=== PATIENT | female | born 1960 | race Caucasian/White ===

== ENCOUNTER 2016-07-19 11:44 | Inpatient (IN) ==
[2016-07-19 12:37] LABS: BUN/Creatinine Ratio 12 (6-26); Blood Urea Nitrogen 8 mg/dL (7-20); C-Reactive Protein 49 mg/L (Less than 5); Calcium 7.9 mg/dL (8.6-10.8); Carbon Dioxide 25 mEq/L (19-29); Chloride 100 mEq/L (98-109); Glucose 196 mg/dL (70-99); Osmolality,Calculated 280 (280-300); Potassium 3.4 mEq/L (3.5-4.5); Sodium 133 mEq/L (136-145); eGFR For African Americans > 60 (> 60); eGFR For Non-African Americans > 60 (> 60)
[2016-07-19 12:56] LABS: Basophils % 0.1 %; Eosinophils % 0.1 %; Hematocrit 30.2 % (35.3-44.9); Hemoglobin 10.3 g/dL (11.5-15.4); Immature Granulocytes % 1.5 % (0-4); Lymphocytes # 0.7 K/mcL (0.6-4.6); Lymphocytes % 4.6 %; Mean Corpuscular HGB Conc 34.1 g/dL (31.6-35.5); Mean Corpuscular Hemoglobin 33.7 pg (28.0-33.3); Mean Corpuscular Volume 98.7 fL (83.0-100.0); Mean Platelet Volume 11.4 fL (9.4-12.4); Monocytes % 6.7 %; Neutrophils # 13.3 K/mcL (1.6-8.9); Platelet Count 116 K/mcL (140-400); Red Blood Count 3.06 M/mcL (3.82-4.97); Red Cell Distribution Width 14.9 % (11.5-14.5)
[2016-07-19 13:04] LABS: Bilirubin,Urine Negative (Negative); Blood,Urine Negative (Negative); Clarity,Urine Cloudy (Clear); Color,Urine Yellow (Yellow); Glucose,Urine (UA) Normal (Normal); Ketones,Urine Negative (Negative); Leukocyte Esterase,Urine Small (Negative); Nitrite,Urine Positive (Negative); Protein,Urine Negative (Neg-Trace); Specific Gravity,Urine 1.018 (1.010-1.025); Urobilinogen,Urine Normal (Normal)
[2016-07-19 13:06] LABS: Bacteria,Urine Many per hpf (None-Few); Hyaline Casts,Urine None Seen per lpf (None-Few); RBC,Urine 0-3 per hpf (0-3); Squamous Epithelial Cell,Urine Many per lpf (None-Few)
[2016-07-19 13:12] LABS: Creatine Kinase 104 Units/L (29-168)
--- NOTE | 2016-07-19 13:52 | Emergency Department Note ---
Disposition Clinical Impression: Urinary tract infection Qualifiers: Urinary tract infection type: site unspecified Hematuria presence: without hematuria Qualified Code(s): N39.0 - Urinary tract infection, site not specified Disposition: Admitted As Inpatient Condition: Good Time of Disposition: 13:54 General Adult HPI - General Chief complaint: ED Shortness of Breath/Dyspnea Stated complaint: JOHANN, pain all over sent by pcp Source: patient, family Limitations: no limitations Nursing Notes Reviewed: Yes Vital Signs Reviewed: Yes - History of Present Illness HPI Narrative: 56-year-old female with history of relapsing polychondritis presents with worsening joint pain over the last week despite starting prednisone 60 mg daily and outside emergency department 3 days ago. She states that the pain is in her shoulders and hips as well as knees. She states that it is similar to, but more severe than prior episodes. She admits to intermittent fevers with this and was febrile to 102 at the primary care office this morning. She notes one episode of emesis when the pain was severe. Otherwise, she denies any nausea, abdominal pain, change in urination or bowel movements. She denies any cough or cold symptoms. She denies any rashes or edema. She denies any mucous membrane lesions. Pain Scale: 0 - Related Data Home Medications Medication Instructions Recorded Confirmed Albuterol Sulfate [Proair Hfa] 2 puff IH Q4HR PRN 07/16/16 07/19/16 Clopidogrel [Plavix] 75 mg PO DAILY 07/16/16 07/19/16 Folic Acid 1 mg PO DAILY 07/16/16 07/19/16 Metformin HCl [Fortamet] 500 mg PO BID 07/16/16 07/19/16 Simvastatin [Zocor] 20 mg PO HS 07/16/16 07/19/16 Furosemide [Lasix] 20 mg PO DAILY 07/19/16 07/19/16 Gabapentin [Neurontin] 600 mg PO TID 07/19/16 07/19/16 Lisinopril [Zestril] 5 mg PO DAILY 07/19/16 07/19/16 Previous Rx's Medication Instructions Recorded Meloxicam 7.5 mg PO DAILY #10 tablet 07/10/16 Tramadol HCl [Ultram] 50 mg PO QID PRN #10 tab 07/10/16 Allergies Allergy/AdvReac Type Severity Reaction Status Date / Time aspirin [ASA] AdvReac Vomiting Verified 07/19/16 14:00 All systems ED: reviewed and negative except as stated. Past Medical History - Past Medical History Attestation: Yes The following information was validated with the patient. Source: patient Medical history: Reports: diabetes, fibromyalgia, other Surgical history: Reports: , herniorrhaphy Psychiatric history: Reports: no psych history BOND MANAGER history: Reports: no BOND MANAGER history - Social History Smoking Status: Former smoker Smokeless Tobacco Status: No Alcohol use: Reports: none Drug use: Reports: none Physical Exam - Head Head exam: atraumatic, normocephalic, normal inspection - Eye Eye exam: Present: normal appearance, PERRL, EOMI - ENT ENT exam: normal exam, normal oropharynx, mucous membranes moist - Neck Neck exam: Present: normal inspection, full ROM, trachea midline - Chest Chest inspection: Present: normal inspection, symmetric chest wall rise - Respiratory Respiratory exam: Clear to auscultation bilaterally without wheezes rales or rhonchi Cardiovascular Cardiovascular exam: Present: regular rate, normal rhythm, normal heart sounds - Abdominal Exam Abdominal exam: Present: soft, Non-Tender. Absent: tenderness, distention, guarding, rebound, rigidity - Extremities Exam Has diffuse tenderness to the hips and shoulders bilaterally. Normal distal pulses. No edema. - Back Exam Back exam: Present: normal inspection, full ROM. Absent: tenderness, CVA tenderness (R), CVA tenderness (L) - Neurological Exam Neurological exam: Present: alert, oriented X3, CN II-XII intact - Psychiatric Psychiatric exam: Present: normal affect, normal mood - Skin Skin exam: Present: warm, dry, intact, normal color - General Limitations: no limitations General appearance: alert, in no apparent distress Course - Reevaluation(s) Reevaluation #1: Evaluation here shows moderate elevation of CRP to 50 along with urinary tract infection. Patient will be treated for the urinary tract infection. Dr. Aviles with rheumatology is aware of the patient and will be available for consult as needed. We will admit for urinary tract infection to the hospitalist. Time: 13:53 Reevaluation #2: Accepted by Dr. Torres. Time: 14:07 Vital Signs Temperature 99.0 F 07/19/16 11:49 Pulse Rate 99 07/19/16 11:49 Respiratory Rate 18 07/19/16 11:49 Blood Pressure 137/75 07/19/16 11:49 O2 Sat by Pulse Oximetry 95 07/19/16 11:49 Temperature 99.0 F 07/19/16 12:29 Pulse Rate 91 07/19/16 13:09 Respiratory Rate 16 07/19/16 15:24 Blood Pressure 125/65 07/19/16 15:24 O2 Sat by Pulse Oximetry 97 07/19/16 13:09 Oxygen Delivery Oxygen Delivery Room Air Medical Decision Making - Lab Data Result diagrams: 07/19/16 12:10 07/19/16 12:10 Lab Results 07/19/16 07/19/16 07/19/16 Range/Units 12:10 12:10 12:10 WBC (4.3-11.1) K/mcL RBC (3.82-4.97) M/mcL Hgb (11.5-15.4) g/dL Hct (35.3-44.9) % MCV (83.0-100.0) fL MCH (28.0-33.3) pg MCHC (31.6-35.5) g/dL RDW (11.5-14.5) % Plt Count (140-400) K/mcL MPV (9.4-12.4) fL Immature Gran % (0-4) % Seg Neutrophils % % Lymphocytes % % Monocytes % % Eosinophils % % Basophils % % Neutrophils # (1.6-8.9) K/mcL Lymphocytes # (0.6-4.6) K/mcL Monocytes # (0.0-1.3) K/mcL Eosinophils # (0.0-0.6) K/mcL Basophils # (0.0-0.2) K/mcL ESR 64 H (0-15) mm/hr Sodium 133 L (136-145) mEq/L Potassium 3.4 L (3.5-4.5) mEq/L Chloride 100 (98-109) mEq/L Carbon Dioxide 25 (19-29) mEq/L BUN 8 (7-20) mg/dL Creatinine 0.69 (0.57-1.11) mg/dL Est GFR ( Amer) > 60 (> 60) Est GFR (Non-Af Amer) > 60 (> 60) BUN/Creatinine Ratio 12 (6-26) Glucose 196 H (70-99) mg/dL Calculated Osmolality 280 (280-300) Calcium 7.9 L (8.6-10.8) mg/dL Creatine Kinase 104 (29-168) Units/L Troponin I 0.02 (0-0.03) ng/mL C-Reactive Protein 49 H (Less than 5) mg/L Urine Color (Yellow) Urine Clarity (Clear) Urine pH (5.0-8.0) pH Units Ur Specific [place] (1.010-1.025) Urine Protein (Neg-Trace) mg/dL Urine Glucose (UA) (Normal) mg/dL Urine Ketones (Negative) mg/dL Urine Blood (Negative) Urine Nitrite (Negative) Urine Bilirubin (Negative) Urine Urobilinogen (Normal) mg/dL Ur Leukocyte Esterase (Negative) Urine Microscopic RBC (0-3) per hpf Urine Microscopic WBC (0-3) per hpf Ur Squamous Epith Cells (None-Few) per lpf Urine Bacteria (None-Few) per hpf Hyaline Casts (None-Few) per lpf Ur Culture Indicated? (NO) 07/19/16 07/19/16 Range/Units 12:10 12:55 WBC 15.3 H (4.3-11.1) K/mcL RBC 3.06 L (3.82-4.97) M/mcL Hgb 10.3 L (11.5-15.4) g/dL Hct 30.2 L (35.3-44.9) % MCV 98.7 (83.0-100.0) fL MCH 33.7 H (28.0-33.3) pg MCHC 34.1 (31.6-35.5) g/dL RDW 14.9 H (11.5-14.5) % Plt Count 116 L (140-400) K/mcL MPV 11.4 (9.4-12.4) fL Immature Gran % 1.5 (0-4) % Seg Neutrophils % 87.0 % Lymphocytes % 4.6 % Monocytes % 6.7 % Eosinophils % 0.1 % Basophils % 0.1 % Neutrophils # 13.3 H (1.6-8.9) K/mcL Lymphocytes # 0.7 (0.6-4.6) K/mcL Monocytes # 1.0 (0.0-1.3) K/mcL Eosinophils # 0.0 (0.0-0.6) K/mcL Basophils # 0.0 (0.0-0.2) K/mcL ESR (0-15) mm/hr Sodium (136-145) mEq/L Potassium (3.5-4.5) mEq/L Chloride (98-109) mEq/L Carbon Dioxide (19-29) mEq/L BUN (7-20) mg/dL Creatinine (0.57-1.11) mg/dL Est GFR ( Amer) (> 60) Est GFR (Non-Af Amer) (> 60) BUN/Creatinine Ratio (6-26) Glucose (70-99) mg/dL Calculated Osmolality (280-300) Calcium (8.6-10.8) mg/dL Creatine Kinase (29-168) Units/L Troponin I (0-0.03) ng/mL C-Reactive Protein (Less than 5) mg/L Urine Color Yellow (Yellow) Urine Clarity Cloudy A (Clear) Urine pH 7.0 (5.0-8.0) pH Units Ur Specific [place] 1.018 (1.010-1.025) Urine Protein Negative (Neg-Trace) mg/dL Urine Glucose (UA) Normal (Normal) mg/dL Urine Ketones Negative (Negative) mg/dL Urine Blood Negative (Negative) Urine Nitrite Positive A (Negative) Urine Bilirubin Negative (Negative) Urine Urobilinogen Normal (Normal) mg/dL Ur Leukocyte Esterase Small H (Negative) Urine Microscopic RBC 0-3 (0-3) per hpf Urine Microscopic WBC 5-15 H (0-3) per hpf Ur Squamous Epith Cells Many H (None-Few) per lpf Urine Bacteria Many H (None-Few) per hpf Hyaline Casts None Seen (None-Few) per lpf Ur Culture Indicated? YES A (NO) - EKG Data EKG #1 EKG attestation: Yes I reviewed and interpreted this EKG. EKG results narrative: Normal sinus rhythm and 97 with normal axis and intervals. No ST elevation or depression. No T-wave inversions or flattening. No old EKG available. Attestation Statement - Attestation Attestation: I examined this patient and my medical decision-making was reviewed with the Resident Physician. I agree with the documented findings, disposition and treatment plan as described except to the extent set forth below. Well-appearing female with recurrant polychondritis and a UTI, sx refractory to O/P steroids. SIRS negative. Admitted to hospitalist with inpatient rheumatology consult per rheum request.
[2016-07-19] MEDS ORDERED: Naloxone 0.4 MG/ML INJ IVP PRN (15:58)
[2016-07-19] MEDS ORDERED: Mag Hydrox/Al Hydrox/Simeth 30 ML UDC PO PRN (15:58)
[2016-07-19] MEDS ORDERED: MOM Conc 10 ML UD.LIQ PO PRN (15:58)
[2016-07-19] MEDS ORDERED: Ondansetron 4 MG/2 ML VIAL IVP PRN (15:58)
[2016-07-19] MEDS ORDERED: Acetaminophen 325 MG TABLET PO PRN (15:58)
[2016-07-19] MEDS ORDERED: traMADol 50 MG TABLET PO PRN (16:02)
[2016-07-19] MEDS ORDERED: *HR* Dextrose 50 % in Water (Syg) 50 ML SYRINGE IVP PRN (16:03)
[2016-07-19] MEDS ORDERED: Dextrose Gel 15 GM PO PRN ×2 (16:03)
[2016-07-19] MEDS ORDERED: D5% in Water 1,000 ML IVC PRN (16:03)
--- NOTE | 2016-07-19 16:18 | Internal Med History&Physical ---
<Renetta Qureshi - Last Filed: 07/19/16 16:07> Date of Encounter: 07/19/16 Time of Encounter: 15:45 Assessment and Plan (1) Relapsing polychondritis Current visit: Yes Status: Chronic Per patient, history for 17 years. Patient normally takes meloxicam and Ultram for pain. She intermittently takes steroids. She has been on a prednisone taper for a few days and states that he is not taking any relief. Pain is in her right shoulder and left hip. She has been seen in the emergency department 2 times in the last 2 weeks. She has been seeing a nurse practitioner in [facility] who has been trying to control her pain. She has an appointment with Dr. Aviles in October. I am putting in a consult for him to see her inpatient to attempt to treat her pain prior to October. Patient reports that currently the pain is 7 out of 10 and is causing her to vomit and have decreased appetite. She says that ice packs help her shoulder and heat helps her hip. She denies injury to either area. Right shoulder is not warm. She does hold her arm to avoid moving it. Prednisone 20 mg by mouth twice a day Stop meloxicam due to anemia [place] when necessary pain Rheumatology consult Ice to shoulder, heat to hip Prednisone slow taper on discharge. (2) Urinary tract infection Current visit: Yes Status: Acute Patient reports dysuria since yesterday. 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 She denies any back or abdominal pain. There is no CVA tenderness. She only reports increased frequency and urgency after being hydrated in the emergency department. She received 1 dose of Rocephin IV in the emergency department and will be continued every 24 hours. Urine culture is pending. Urine was negative for blood, positive for bacteria and leukocyte esterase. IV fluids 0.9 normal saline at 50 per hour Rocephin 1 g IV every 24 hours Zofran as needed for nausea Tylenol for pain or fever Urine culture pending Qualifiers: Urinary tract infection type: acute cystitis Hematuria presence: without hematuria Qualified Code(s): N30.00 - Acute cystitis without hematuria (3) Diabetes Current visit: Yes Status: Acute Stop metformin. Sliding scale insulin Accu-Cheks before meals and at bedtime A1c in the morning Diabetic diet Qualifiers: Diabetes mellitus type: type 2 Diabetes mellitus complication status: without complication Diabetes mellitus fpc insulin use: without tank terminal gauger use Qualified Code(s): E11.9 - Type 2 diabetes mellitus without complications (4) Anemia Current visit: Yes Status: Acute Hemoglobin is 10.3. Patient denies tarry stool, blood in her stool. She says that she has had bright red urine, urine in the emergency department negative for blood. Stool for occult blood Her labs in the morning Indications for hemoglobin less than 8 and symptomatic Qualifiers: Anemia type: unspecified type Qualified Code(s): D64.9 - Anemia, unspecified (5) DVT prophylaxis Current visit: Yes Status: Acute Pharmaceutical prophylaxis held due to anemia. Patient independent. JEYSON pathak Internal Medicine - H&P: HPI Admitted From: Home Plans for Post Hospital Care: Home History of present illness: Ms. Marlow is a 56 year old female with history of diabetes, hypertension, unknown irregular heart rate and rhythm polychondritis. Patient states that she has been seen in the emergency department 2 times in the last 2 weeks for worsening pain in her right shoulder and left hip. She says that she is normally taking on steroids for this problem, however this time is not helping. She does have an appointment to see rheumatology in October with Dr. Aviles. She states this is the earliest that she could get in. She does take meloxicam and Ultram at home for pain. She rates the pain a 7 out of 10 and says that she is not getting better this time. She is not resting, and has decreased appetite. Patient also reports onset of dysuria yesterday. She says that she has had bright red urine for 2 months. She said that she chalked it up to her hyperglycemia. She says that she was told by her early head start teacher that her heart was bleeding and it was making her have red urine. She denies any flank pain, abdominal pain, and only reports increased frequency and urgency since being in the emergency department and being hydrated. Patient reports questionable irregular heart rate that has not been diagnosed and she is a patient of Dr. Mccarthy. Patient is admitted to [facility] for UTI and pain control. Past Med Surg Social Fam HX - Past Medical History Medical history: diabetes, fibromyalgia, other Psychiatric history: no psych history - Past Surgical History Surgical History: , herniorrhaphy - Social History Smoking Status: Former smoker Smokeless Tobacco Status: No Alcohol use: none Drug use: none Internal Medicine - H&P: Meds Meloxicam 7.5 mg PO DAILY #10 tablet 07/10/16 [Rx] Tramadol HCl [Ultram] 50 mg PO QID PRN #10 tab 07/10/16 [Rx] Albuterol Sulfate [Proair Hfa] 2 puff IH Q4HR PRN 07/16/16 [History] Clopidogrel [Plavix] 75 mg PO DAILY 07/16/16 [History] Folic Acid 1 mg PO DAILY 07/16/16 [History] Metformin HCl [Fortamet] 500 mg PO BID 07/16/16 [History] Simvastatin [Zocor] 20 mg PO HS 07/16/16 [History] Furosemide [Lasix] 20 mg PO DAILY 07/19/16 [History] Gabapentin [Neurontin] 600 mg PO TID 07/19/16 [History] Lisinopril [Zestril] 5 mg PO DAILY 07/19/16 [History] Allergies aspirin [ASA] Adverse Reaction (Verified 07/19/16 14:00) Vomiting All Systems PM: A 10-system review of systems was performed and is negative for pertinent findings except as documented above in the HPI. - Constitutional Constitutional: no chills, no fever(s), no weakness - EENT Eyes: no blurry vision, no loss of vision - Cardiovascular Cardiovascular ROS IM: no chest pain, no dyspnea, no edema, no lightheadedness, no palpitations - Respiratory Respiratory: no cough, no dyspnea, no pain on inspiration, no chest congestion - Gastrointestinal Gastrointestinal: no abdominal pain, no cramping, no diarrhea, no nausea, no vomiting - Genitourinary Genitourinary: dysuria, urinary frequency, urinary urgency, no urinary hesitancy - Musculoskeletal Musculoskeletal ROS IM: joint swelling, limited range of motion, stiffness, no back pain - Integumentary Integumentary IM: no rash - Neurological Neurological ROS: no dizziness, no frequent falls, no headache(s), no numbness, no tingling, no weakness - Constitutional Vitals: Temp Pulse Resp BP Pulse Ox 99.0 F 91 16 125/65 97 07/19/16 12:29 07/19/16 13:09 07/19/16 15:24 07/19/16 15:24 07/19/16 13:09 General appearance: Present: A&O X 3, pleasant, answers questions appropriately - Head Head exam: Present: normal inspection - Eye Eye exam: Present: normal appearance, conjuntiva pink - ENT ENT exam: Present: mucous membranes moist, normal exam, normal external ear exam - Neck Neck exam general surgery: Present: normal inspection. Absent: lymphadenopathy , tenderness - Respiratory Respiratory exam: Present: decreased breath sounds, CTAB. Absent: rales, rhonchi, wheezes - Cardiovascular Cardiovascular exam: Present: RRR, +S1, +S2. Absent: diastolic murmur, systolic murmur - GI/Abdominal GI/Abdominal exam: Present: normal bowel sounds, soft. Absent: hepatomegaly, rebound, tenderness - Extremities Exam Extremities exam: Present: joint swelling, normal capillary refill, warm. Absent: full ROM, pedal edema, tenderness - Neurological Exam Neurological exam: Present: alert, oriented X3, no focal deficits, strengths equal and symetr throughout. Absent: facial droop, speech deficit Internal Med - H&P Results - Labs CBC & Chem 7: 07/19/16 12:10 07/19/16 12:10 <Marco Torres - Last Filed: 07/19/16 18:08> Date of Encounter: 07/19/16 Time of Encounter: 16:45 Internal Medicine - H&P: HPI History of present illness: Ms. Marlow is a 56 year old female All Systems PM: A 10-system review of systems was performed and is negative for pertinent findings except as documented above in the HPI. - Constitutional Vitals: Temp Pulse Resp BP Pulse Ox 98.1 F 87 14 127/64 95 07/19/16 15:45 07/19/16 15:45 07/19/16 15:45 07/19/16 15:45 07/19/16 15:45 Internal Med - H&P Results - Labs CBC & Chem 7: 07/19/16 12:10 07/19/16 12:10 - Attending Attestation I examined this patient and my medical decision-making was reviewed with the nurse practitioner. I agree with the documented history of present illness, review of systems, past medical, surgical social and family histories and examination findings, disposition and treatment plan as described above except to any changes set forth below. 56-year-old female patient with history of relapsing polychondritis presented to the ER with complaints of right-sided shoulder pain and generalized weakness. She had recently been started on treatment for right-sided shoulder pain and left hip pain with prednisone taper every 3 days. She also complains of dysuria. In the ER, she was found to have an acute urinary tract infection. Her CRP is elevated. On examination, she has tenderness in her muscles around her shoulder joint. Heart sounds and lungs sounds are within normal limits. No focal weakness or numbness. Acute urinary tract infection: We will treat with IV antibiotics. Follow urine culture results. Gentle hydration. Relapsing polychondritis: Continue prednisone and taper slowly. Consult rheumatology for further recommendations. Diabetes mellitus type 2: Monitor blood sugars. Sliding scale insulin. Diabetic diet. Anemia: Monitor blood counts.
--- NOTE | 2016-07-19 16:26 | Electrocardiograph Report ---
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
[2016-07-19] MEDS: 0.9 % Sodium Chloride 1,000 ML IVC SCH (16:49)
[2016-07-19 16:56] LABS: Hemoglobin A1C 5.2 %
[2016-07-19] MEDS ORDERED: predniSONE 20 MG TABLET PO SCH (17:00)
[2016-07-19] MEDS: *HR* HYDROcodone/Acet 5/325 mg TABLET PO PRN (17:04)
[2016-07-19] MEDS: Insulin LISPRO 300 UNITS/3 ML VIAL SQ SCH ×2 (17:05→20:39)
[2016-07-19] MEDS: Gabapentin 300 MG CAPSULE PO SCH (20:39)
[2016-07-20] MEDS: *HR* HYDROcodone/Acet 5/325 mg TABLET PO PRN ×3 (00:28→20:46)
[2016-07-20 05:17] LABS: Basophils % 0.1 %; Hemoglobin 9.6 g/dL (11.5-15.4); Mean Platelet Volume 11.1 fL (9.4-12.4); Red Cell Distribution Width 14.6 % (11.5-14.5)
[2016-07-20 05:18] LABS: Eosinophils # 0.1 K/mcL (0.0-0.6); Eosinophils % 0.6 %; Hematocrit 28.8 % (35.3-44.9); Immature Platelets 4.8 % (1.1-6.1); Lymphocytes # 0.8 K/mcL (0.6-4.6); Lymphocytes % 10.1 %; Mean Corpuscular HGB Conc 33.3 g/dL (31.6-35.5); Mean Corpuscular Hemoglobin 33.3 pg (28.0-33.3); Monocytes # 0.6 K/mcL (0.0-1.3); Monocytes % 7.2 %; Neutrophils # 6.4 K/mcL (1.6-8.9); Platelet Count 81 K/mcL (140-400); Red Blood Count 2.88 M/mcL (3.82-4.97)
[2016-07-20 05:19] LABS: Platelet Estimate Decreased (Normal)
[2016-07-20 05:24] LABS: BUN/Creatinine Ratio 16 (6-26); Blood Urea Nitrogen 9 mg/dL (7-20); Calcium 7.8 mg/dL (8.6-10.8); Carbon Dioxide 27 mEq/L (19-29); Chloride 104 mEq/L (98-109); Glucose 116 mg/dL (70-99); Osmolality,Calculated 282 (280-300); Potassium 3.7 mEq/L (3.5-4.5); Sodium 136 mEq/L (136-145); eGFR For African Americans > 60 (> 60); eGFR For Non-African Americans > 60 (> 60)
[2016-07-20 07:57] LABS: Acinetobacter baumannii by PCR Not Detected (Not Detect); Candida albicans by PCR Not Detected (Not Detect); Candida glabrata by PCR Not Detected (Not Detect); Candida krusei by PCR Not Detected (Not Detect); Candida parapsilosis by PCR Not Detected (Not Detect); Candida tropicalis by PCR Not Detected (Not Detect); Enterococcus by PCR Not Detected (Not Detect); Klebsiella oxytoca by PCR Not Detected (Not Detect); Klebsiella pneumoniae by PCR Not Detected (Not Detect); Pseudomonas aeruginosa by PCR Not Detected (Not Detect); Serratia marcescens by PCR Not Detected (Not Detect); Staphylococcus aureus by PCR Not Detected (Not Detect); Streptococcus agalactiae(B)PCR Not Detected (Not Detect); Streptococcus by PCR Not Detected (Not Detect); Streptococcus pneumoniae PCR Not Detected (Not Detect); Streptococcus pyogenes (A) PCR Not Detected (Not Detect); blaKPC Carbapenem-Resist Gene Not Detected (Not Detect)
[2016-07-20 07:58] LABS: Escherichia coli by PCR ***DETECTED*** (Not Detect)
[2016-07-20] MEDS: Insulin LISPRO 300 UNITS/3 ML VIAL SQ SCH ×4 (08:08→20:07)
[2016-07-20] MEDS: Folic Acid 1 MG TABLET PO SCH (08:41)
[2016-07-20] MEDS: Furosemide 20 MG TABLET PO SCH (08:41)
[2016-07-20] MEDS: predniSONE 10 MG TABLET PO SCH ×2 (08:41→16:41)
[2016-07-20] MEDS: Gabapentin 300 MG CAPSULE PO SCH ×3 (08:41→20:06)
--- NOTE | 2016-07-20 13:25 | ECHO - Doppler Report ---
Echocardiogram Name: Mireya Marlow Date of Study: 07/20/2016 Date: 1960 Ht: 64.0 in Medical Record#: [id number] Age: 56 Wt: 207.0 lb Gender: Female BSA: 1.98 Order #: [id number] Location: [facility] Room #: [id number] Reading Physician: Diony Hughes DO, JEFFERY BHATT Certified Ophthalmic Medical Technician: Andrew Sykes RDCS Ordering Physician: Renetta Qureshi CNP Primary Physician: Indications: Bacteremia Impressions: LVEF 70%. Normal LV chamber size, wall thickness and hyperdynamic function. Mildly increased trans aortic valve gradient likely due to hyperdynamic LV function (MG 12 mmHg). Indeterminate diastolic function due to tachycardia. Normal right ventricular structure and function. Moderately dilated left atrium. Moderate pulmonary hypertension. Estimated RVSP is 53 mmHg. No significant valvular dysfunction. Findings: Study Quality * Technically adequate exam. ECG Findings * Sinus tachycardia. Left Ventricle * LVEF 70%. * Normal LV chamber size, wall thickness and hyperdynamic function. * Indeterminate diastolic function due to tachycardia. Right Ventricle * Normal right ventricular structure and function. Left Atrium * Moderately dilated left atrium. Right Atrium * Normal right atrial size. Interatrial Septum * No evidence of PFO by color Doppler. Aortic Valve * Trileaflet aortic valve with normal function. * No aortic stenosis. * No aortic regurgitation. Mitral Valve * Normal mitral valve structure and function. * No mitral stenosis. * Trace mitral regurgitation. Tricuspid Valve * Normal tricuspid valve structure and function. * Trace tricuspid regurgitation. * Moderate pulmonary hypertension. * Estimated RVSP is 53 mmHg. * Estimated RA pressure is 5 mmHg. Pulmonic Valve * Normal pulmonic valve structure and function. * No pulmonic regurgitation. Aorta * Normally sized aortic root. Pericardium * There is a trivial pericardial effusion present. IVC * Normal IVC dimensions and inspiratory collapse. Pulmonary Artery * Normal visualized portions of the main pulmonary artery. History Diabetes Hypercholesteremia 01/23/16 a Previous Echo was performed. Measurements: BP: 133/ 76 2D Normal Values RVIDd: 3.10 cm <2.7 cm IVSd: 1.20 cm 0.6 - 1.0 cm LVIDd: 4.60 cm 3.7 - 5.6 cm LVPWd: .90 cm 0.6 - 1.1 cm LVIDs: 2.70 cm 1.5 - 3.6 cm AO: 2.90 cm < 4.0 cm LA: 3.70 cm 2.0 - 4.0cm %FS: 41.30 cm >25 % LVOT Diam: 2.00 cm LA volume: 80 Mitral Valve Peak E:1.28 m/sec Peak E' Lat Bruno:8.48 cm/s Peak E' Med Bruno:8.58 cm/s E/E' Lat Ratio:15.1 E/E' Med Ratio:14.9 LVOT Peak Bruno:1.55 m/sec Mean Bruno:1.03 m/sec Peak Grad:10.00 mmHg Mean Grad:5.00 mmHg Aortic Valve Peak Bruno:2.35 m/sec Mean Bruno:1.56 m/sec Peak Grad:22.00 mmHg Mean Grad:12.00 mmHg Valve Area:2.16 cm2 Tricuspid Valve TV Regurg Peak Grad: 48.00mmHg TV Regurg Peak Bruno: 3.46m/sec Updated by Diony Hughes DO, FACMarisel, JEFFERY, MELA on 07/20/2016 1:19:51 PM electronically signed on 07/20/2016 1:20:16 PM with status of [employer] [place] [employer] [place]: 1=Normal, 2=Hypokinesis, 3=Akinesis, 4=Dyskinesis, 5=Aneurysmal, 6=Hyperkinetic, X=Not Visualized (Blank)=Missing
[2016-07-20] MEDS: 0.9 % Sodium Chloride 1,000 ML IVC SCH (14:26)
--- NOTE | 2016-07-20 16:56 | Internal Med Progress Note ---
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 Patient reports history for 17 years. She was on an prednisone taper outpatient. She said she did not get relief this time. Pain is primarily in right shoulder and left hip. There are no deformities or bruising or abrasions , patient denies injury. They are tender to palpation. Continue prednisone 20 mg by mouth twice a day We have stopped the meloxicam due to anemia. Ursa when necessary pain Rheumatology has been consulted Continue prednisone slow taper on discharge. (2) Urinary tract infection Current Visit: Yes Status: Acute Assessment and plan: Gram-negative rods. Patient was experiencing dysuria yesterday. She denies today. Urine culture pending Patient is getting Rocephin 1 g IV daily Monitor vital signs and patient condition Qualifiers: Urinary tract infection type: acute cystitis Hematuria presence: without hematuria Qualified Code(s): N30.00 - Acute cystitis without hematuria (3) Diabetes Current Visit: Yes Status: Acute Assessment and plan: Continue sliding scale insulin Accu-Cheks before meals at bedtime A1c at goal Diabetic diet Qualifiers: Diabetes mellitus type: type 2 Diabetes mellitus complication status: without complication Diabetes mellitus penitentiary insulin use: without penitentiary use Qualified Code(s): E11.9 - Type 2 diabetes mellitus without complications (4) Anemia Current Visit: Yes Status: Acute Assessment and plan: Hemoglobin is 9.6 today. 10.3 yesterday. Patient denies vaginal bleeding, bright red bleeding per rectum or dark tarry stools, or hematochezia. Patient is asymptomatic. She denies shortness of breath or fatigue. We will continue to monitor in the morning and consult GI if necessary. We have stopped meloxicam. Type and screen is ordered H&H in the morning and at 2100. Qualifiers: Anemia type: unspecified type Qualified Code(s): D64.9 - Anemia, unspecified (5) DVT prophylaxis Current Visit: Yes Status: Acute Assessment and plan: Pharmaceutical prophylaxis held due to anemia. Patient is independent and up to the bathroom. JEYSON pathak. (6) Bacteremia due to Escherichia coli Current Visit: Yes Status: Acute Assessment and plan: Blood culture is returned today PCR positive for Escherichia coli and Enterobacteriacea group. Patient is already receiving Rocephin for UTI. This will be continued. Patient met SIRS criteria today with tachycardia and fever. Respirations remain normal. Fever resolved later in the day. Patient will need to be monitored closely. We will change vital signs 2 every 4 hours. Both urine and blood cultures are still pending. Monitor for results. - Time Spent With Patient less than 15 minutes - Subjective Interval history: Patient resting quietly in bed this morning. She was seen and assessed at about 11:10 AM. She actually appears like she feels better than she did last night. Patient states that she feels better than she did last night. She still has pain to right shoulder and left hip. They are tender to palpation and pain increases with movement. Patient states that she was afraid to ask for pain medication she does not want to bother anyone. I explained to her that she needs to keep her pain under control. Blood culture today was positive for Escherichia coli and gram-negative Enterobacteriaceae Group. Sensitivity is still pending. She is already on Rocephin for gram-negative petr UTI, that sensitivity is pending, as well. Prior urinary culture results from November, were positive for Enterobacter that was sensitive to Rocephin. We will continue to monitor this. - Constitutional Vitals: Temp Pulse Resp BP Pulse Ox 98.7 F 84 18 121/79 97 07/20/16 16:20 07/20/16 16:20 07/20/16 16:20 07/20/16 16:20 07/20/16 16:20 General appearance: Present: A&O X 3, pleasant, obese, answers questions appropriately - Head Head exam: Present: normal inspection - Eye Eye exam: Present: normal appearance, conjuntiva pink - ENT ENT exam: Present: mucous membranes moist, normal exam, normal external ear exam - Neck Neck exam general surgery: Present: normal inspection. Absent: lymphadenopathy , tenderness - Respiratory Respiratory exam: Present: decreased breath sounds, CTAB. Absent: rhonchi, wheezes - Cardiovascular Cardiovascular exam: Present: RRR, +S1, +S2. Absent: diastolic murmur, systolic murmur - GI/Abdominal GI/Abdominal exam: Present: distended, normal bowel sounds. Absent: hepatomegaly, tenderness - Extremities Exam Extremities exam: Present: pedal edema, warm, radial pulses palpable and symetrical. Absent: tenderness - Neurological Exam Neurological exam: Present: alert, oriented X3, no focal deficits, strengths equal and symetr throughout Internal Medicine: Result - Labs CBC & Chem 7: 07/20/16 04:54 07/20/16 04:54 Labs: Short CBC 07/20/16 Range/Units 04:54 WBC 7.9 (4.3-11.1) K/mcL Hgb 9.6 L (11.5-15.4) g/dL Hct 28.8 L (35.3-44.9) % Plt Count 81 L (140-400) K/mcL Neutrophils # 6.4 (1.6-8.9) K/mcL BMP 07/20/16 04:54 Sodium 136 Potassium 3.7 Chloride 104 Carbon Dioxide 27 BUN 9 Creatinine 0.56 L Glucose 116 H Calcium 7.8 L Consult Discharge Plan - Plan Referrals: Carmita Leal, JOSEFA [Primary Care Provider] -
[2016-07-20 21:37] LABS: Basophils % 0.1 %; Eosinophils % 0.1 %; Hematocrit 28.8 % (35.3-44.9); Hemoglobin 9.8 g/dL (11.5-15.4); Immature Granulocytes % 1.8 % (0-4); Lymphocytes # 0.4 K/mcL (0.6-4.6); Lymphocytes % 4.8 %; Mean Corpuscular Hemoglobin 33.9 pg (28.0-33.3); Mean Corpuscular Volume 99.7 fL (83.0-100.0); Mean Platelet Volume 10.7 fL (9.4-12.4); Monocytes # 0.6 K/mcL (0.0-1.3); Monocytes % 6.5 %; Neutrophils # 7.7 K/mcL (1.6-8.9); Red Blood Count 2.89 M/mcL (3.82-4.97); Red Cell Distribution Width 14.3 % (11.5-14.5); Segmented Neutrophils % 86.7 %
[2016-07-20 21:39] LABS: Platelet Count 76 K/mcL (140-400)
[2016-07-21 05:18] LABS: Hematocrit 27.1 % (35.3-44.9); Immature Granulocytes % 1.5 % (0-4); Mean Corpuscular HGB Conc 33.2 g/dL (31.6-35.5); Red Cell Distribution Width 14.2 % (11.5-14.5)
[2016-07-21 05:20] LABS: Basophils % 0.1 %; Eosinophils % 0.5 %; Lymphocytes # 0.9 K/mcL (0.6-4.6); Lymphocytes % 10.7 %; Mean Corpuscular Hemoglobin 33.1 pg (28.0-33.3); Mean Corpuscular Volume 99.6 fL (83.0-100.0); Mean Platelet Volume 10.9 fL (9.4-12.4); Monocytes # 0.7 K/mcL (0.0-1.3); Monocytes % 9.2 %; Neutrophils # 6.2 K/mcL (1.6-8.9); Red Blood Count 2.72 M/mcL (3.82-4.97)
[2016-07-21 05:32] LABS: BUN/Creatinine Ratio 16 (6-26); Blood Urea Nitrogen 9 mg/dL (7-20); Calcium 7.8 mg/dL (8.6-10.8); Carbon Dioxide 28 mEq/L (19-29); Chloride 104 mEq/L (98-109); Glucose 159 mg/dL (70-99); Osmolality,Calculated 286 (280-300); Platelet Count 78 K/mcL (140-400); Potassium 3.9 mEq/L (3.5-4.5); Sodium 137 mEq/L (136-145); eGFR For African Americans > 60 (> 60); eGFR For Non-African Americans > 60 (> 60)
[2016-07-21] MEDS: Insulin LISPRO 300 UNITS/3 ML VIAL SQ SCH ×4 (09:15→20:46)
[2016-07-21] MEDS: Gabapentin 300 MG CAPSULE PO SCH ×3 (09:34→20:45)
[2016-07-21] MEDS: predniSONE 10 MG TABLET PO SCH ×2 (09:34→16:51)
[2016-07-21] MEDS: Furosemide 20 MG TABLET PO SCH (09:34)
[2016-07-21] MEDS: Folic Acid 1 MG TABLET PO SCH (09:34)
[2016-07-21] MEDS: 0.9 % Sodium Chloride 1,000 ML IVC SCH (09:40)
[2016-07-21 11:18] LABS: % Iron Saturation 17 % (15-50); Iron 36 mcg/dL (50-170); Transferrin 147 mg/dL (180-382)
[2016-07-21 11:54] LABS: Folate 14.6 ng/mL (7.0-31.4)
[2016-07-21 12:02] LABS: Bilirubin,Urine Negative (Negative); Blood,Urine Negative (Negative); Color,Urine Dark Yellow (Yellow); Glucose,Urine (UA) Normal (Normal); Ketones,Urine Negative (Negative); Leukocyte Esterase,Urine Small (Negative); Nitrite,Urine Negative (Negative); PH,Urine 6.5 pH Units (5.0-8.0); Protein,Urine Negative (Neg-Trace); Specific Gravity,Urine 1.022 (1.010-1.025)
[2016-07-21 12:04] LABS: Hyaline Casts,Urine None Seen per lpf (None-Few); Squamous Epithelial Cell,Urine Many per lpf (None-Few); WBC,Urine 0-3 per hpf (0-3)
[2016-07-21 12:05] LABS: Clarity,Urine Slightly Hazy (Clear)
[2016-07-21 12:20] LABS: Bacteria,Urine Few per hpf (None-Few); RBC,Urine 0-3 per hpf (0-3)
--- NOTE | 2016-07-21 16:42 | Internal Med Progress Note ---
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 She is able to move around better today without much pain. Shoulder still remains tender but has improved. Continue prednisone. PT and OT tomorrow since patient is feeling better today. (2) Urinary tract infection Current Visit: Yes Status: Acute Assessment and plan: Urine culture still pending. Patient being treated with Rocephin. She denies any urinary symptoms. She again states that her urine is bright red still today. I sent another urine specimen, it is negative for blood. Qualifiers: Urinary tract infection type: acute cystitis Hematuria presence: without hematuria Qualified Code(s): N30.00 - Acute cystitis without hematuria (3) Diabetes Current Visit: Yes Status: Acute Assessment and plan: Continue sliding scale insulin Accu-Cheks before meals at bedtime A1c is at goal Diabetic diet Accu-Cheks remain elevated. Qualifiers: Diabetes mellitus type: type 2 Diabetes mellitus complication status: without complication Diabetes mellitus long-term insulin use: without long-term use Qualified Code(s): E11.9 - Type 2 diabetes mellitus without complications (4) Anemia Current Visit: Yes Status: Acute Assessment and plan: Hemoglobin 9 today. Was 10.32 days ago on admission. Iron is low at 36. Percent saturation is 17 transferrin is low at 147. Vitamin B12 is elevated at 1210, and folate is 146. Stool is negative for occult blood. Patient states that her urine is bright red and has been for several months. I did not see her urine but it is negative for red cells. She denies vaginal bleeding or dark tarry stools or bright red rectal bleeding. She reports that she has been fatigued, but is otherwise asymptomatic. I did speak with Dr. Newman by phone today, patient will follow up outpatient for colonoscopy. Continue to monitor labs Type and screen is completed Meloxicam has been stopped Qualifiers: Anemia type: unspecified type Qualified Code(s): D64.9 - Anemia, unspecified (5) DVT prophylaxis Current Visit: Yes Status: Acute Assessment and plan: Pharmaceutical prophylaxis held due to anemia. Patient is independent and up to the bathroom. JEYSON pathak. (6) Bacteremia due to Escherichia coli Current Visit: Yes Status: Acute Assessment and plan: Blood culture is returned today PCR positive for Escherichia coli and Enterobacteriacea group. Patient is already receiving Rocephin for UTI. This will be continued. Patient met SIRS criteria today with tachycardia and fever. Respirations remain normal. Fever resolved later in the day. Patient will need to be monitored closely. We will change vital signs 2 every 4 hours. Both urine and blood cultures are still pending. Monitor for results. - Time Spent With Patient less than 15 minutes - Subjective Interval history: Patient was seen and examined this morning. Son and at bedside. Patient is in good spirits and is watching TV. She denies any pain and states that she is feeling better today. We discussed her anemia and she denies any prior history or requiring medication or evaluation. She says that she has been fatigued lately, otherwise she is asymptomatic. She denies bleeding. She will follow up outpatient for colonoscopy. Urine and blood culture finals and sensitivities are still pending. - Constitutional Vitals: Temp Pulse Resp BP Pulse Ox 98.5 F 85 18 112/68 96 07/21/16 14:40 07/21/16 14:40 07/21/16 14:40 07/21/16 14:40 07/21/16 14:40 General appearance: Present: cooperative, A&O X 3, pleasant, no acute distress, obese, answers questions appropriately - Head Head exam: Present: normal inspection - ENT ENT exam: Present: mucous membranes moist, normal exam, normal external ear exam - Respiratory Respiratory exam: Present: CTAB. Absent: rales, respiratory distress, rhonchi, wheezes - Cardiovascular Cardiovascular exam: Present: RRR, +S1, +S2. Absent: diastolic murmur, systolic murmur - GI/Abdominal GI/Abdominal exam: Present: normal bowel sounds, soft. Absent: distended, hepatomegaly, tenderness - Neurological Exam Neurological exam: Present: abnormal gait, normal gait, no focal deficits, strengths equal and symetr throughout. Absent: pronater drift, facial droop, speech deficit Internal Medicine: Result - Labs CBC & Chem 7: 07/21/16 05:02 07/21/16 05:02 Labs: Short CBC 07/20/16 07/21/16 Range/Units 21:17 05:02 WBC 8.9 8.0 (4.3-11.1) K/mcL Hgb 9.8 L 9.0 L (11.5-15.4) g/dL Hct 28.8 L 27.1 L (35.3-44.9) % Plt Count 76 L 78 L (140-400) K/mcL Neutrophils # 7.7 6.2 (1.6-8.9) K/mcL BMP 07/21/16 05:02 Sodium 137 Potassium 3.9 Chloride 104 Carbon Dioxide 28 BUN 9 Creatinine 0.55 L Glucose 159 H Calcium 7.8 L Urine 07/21/16 Range/Units 11:50 Urine Color Dark Yellow (Yellow) Urine Clarity Slightly Hazy (Clear) Urine pH 6.5 (5.0-8.0) pH Units Ur Specific [place] 1.022 (1.010-1.025) Urine Protein Negative (Neg-Trace) mg/dL Urine Glucose (UA) Normal (Normal) mg/dL Consult Discharge Plan - Plan Referrals: Carmita Leal, JOSEFA [Primary Care Provider] -
[2016-07-22 05:00] LABS: Eosinophils % 0.4 %
[2016-07-22 05:01] LABS: Hematocrit 28.6 % (35.3-44.9); Hemoglobin 9.4 g/dL (11.5-15.4); Immature Platelets 5.1 % (1.1-6.1); Mean Corpuscular HGB Conc 32.9 g/dL (31.6-35.5); Mean Corpuscular Volume 100.4 fL (83.0-100.0); Red Blood Count 2.85 M/mcL (3.82-4.97)
[2016-07-22 05:02] LABS: Immature Granulocytes % 1.5 % (0-4); Lymphocytes # 0.7 K/mcL (0.6-4.6); Lymphocytes % 8.7 %; Monocytes # 0.7 K/mcL (0.0-1.3); Monocytes % 8.4 %; Neutrophils # 6.6 K/mcL (1.6-8.9)
[2016-07-22 05:13] LABS: Platelet Count 92 K/mcL (140-400)
[2016-07-22 05:14] LABS: BUN/Creatinine Ratio 15 (6-26); Blood Urea Nitrogen 9 mg/dL (7-20); Calcium 8.2 mg/dL (8.6-10.8); Carbon Dioxide 28 mEq/L (19-29); Chloride 102 mEq/L (98-109); Glucose 265 mg/dL (70-99); Osmolality,Calculated 288 (280-300); Sodium 135 mEq/L (136-145); eGFR For African Americans > 60 (> 60); eGFR For Non-African Americans > 60 (> 60)
[2016-07-22] MEDS: predniSONE 10 MG TABLET PO SCH (07:52)
[2016-07-22] MEDS: Furosemide 20 MG TABLET PO SCH (07:53)
[2016-07-22] MEDS: Folic Acid 1 MG TABLET PO SCH (07:53)
[2016-07-22] MEDS: Gabapentin 300 MG CAPSULE PO SCH (07:53)
[2016-07-22] MEDS: Insulin LISPRO 300 UNITS/3 ML VIAL SQ SCH (07:55)
[2016-07-22 08:17] VITALS: BP 126/70
--- NOTE | 2016-07-22 08:57 | Discharge Summary ---
Date of Encounter: 07/22/16 Time of Encounter: 08:51 - Discharge Diagnosis (1) Sepsis Priority: Primary Status: Acute Comments: Sepsis secondary to Escherichia coli bacteremia/UTI Qualifiers: Sepsis type: Escherichia coli Qualified Code(s): A41.51 - Sepsis due to Escherichia coli [E. coli] (2) Urinary tract infection Priority: Primary Status: Acute Qualifiers: Urinary tract infection type: acute cystitis Hematuria presence: without hematuria Qualified Code(s): N30.00 - Acute cystitis without hematuria (3) Relapsing polychondritis Priority: Secondary Status: Chronic (4) Diabetes Priority: Secondary Status: Acute Qualifiers: Diabetes mellitus type: type 2 Diabetes mellitus complication status: without complication Diabetes mellitus superintendent marine oil terminal insulin use: without detention use Qualified Code(s): E11.9 - Type 2 diabetes mellitus without complications (5) Anemia Priority: Secondary Status: Acute Qualifiers: Anemia type: unspecified type Qualified Code(s): D64.9 - Anemia, unspecified (6) Bacteremia due to Escherichia coli Priority: Primary Status: Acute - Discharge Medications Prescriptions: Amoxicillin [Amoxil] 500 mg PO TID #12 capsule HYDROcodone/Acet 5/325 mg [[place] 5-325 mg] 1 tab PO Q6H PRN #30 tablet PRN Reason: Moderate Pain (4-6) predniSONE [PredniSONE] 10 mg PO DAILY 20 Days Home Medications: Meloxicam 7.5 mg PO DAILY #10 tablet 07/10/16 [Rx] Tramadol HCl [Ultram] 50 mg PO QID PRN #10 tab 07/10/16 [Rx] Albuterol Sulfate [Proair Hfa] 2 puff IH Q4HR PRN 07/16/16 [History] Clopidogrel [Plavix] 75 mg PO DAILY 07/16/16 [History] Folic Acid 1 mg PO DAILY 07/16/16 [History] Metformin HCl [Fortamet] 500 mg PO BID 07/16/16 [History] Simvastatin [Zocor] 20 mg PO HS 07/16/16 [History] Furosemide [Lasix] 20 mg PO DAILY 07/19/16 [History] Gabapentin [Neurontin] 600 mg PO TID 07/19/16 [History] Lisinopril [Zestril] 5 mg PO DAILY 07/19/16 [History] Amoxicillin [Amoxil] 500 mg PO TID #12 capsule 07/22/16 [Rx] HYDROcodone/Acet 5/325 mg [[place] 5-325 mg] 1 tab PO Q6H PRN #30 tablet 07/22/16 [Rx] predniSONE [PredniSONE] 10 mg PO DAILY 20 Days 07/22/16 [Rx] Allergies/Adverse Reactions: Allergies aspirin [ASA] Adverse Reaction (Verified 07/19/16 14:00) Vomiting Date of admission: 07/20/16 17:16 Primary care physician: Carmita Leal - Patient Status Disposition: Home, Self-Care Condition: Good Overall status at discharge: patient is progressing back to baseline - Discharge Instructions Follow Up With: Carmita Leal, CLINICAL REHAB SPECIALIST [Primary Care Provider] - Additional Instructions: Follow with primary care physician within the next [address] Aviles within the next 2 weeks. Continue prednisone taper. Complete 4 more days of amoxicillin - Diet and Activity Activity: increase activity as tolerated Diet: low fat, low cholesterol Hospital course: Ms. Marlow is a 56 year old female with history of diabetes not insulin- dependent, hypertension, unknown irregular heart rate and relapsing polychondritis. Patient stated that she had been seen in the emergency department 2 times in the last 2 weeks for worsening pain in her right shoulder and left hip. She said that she is normally taking on steroids for this problem , however this time did not helping. She does have an appointment to see rheumatology in October with Dr. Aviles. Patient reported onset of dysuria She says that she had bright red urine for 2 months. The patient's blood cultures grew Escherichia coli which was pansensitive, dysmotility was also found in her urine. Patient was continued on Rocephin and was maintained on prednisone. Today she is feeling much better and prefers to be discharged. She will follow up with Dr. Aviles within the next couple weeks as I personally spoke with him and his going to schedule an appointment within the next few days. Echocardiogram was performed showing an ejection fraction of 70% and a mildly increased trans-aortic valve gradient - Time Spent with Patient Total time spent providing and/or coordinating discharge services: Greater than 30 minutes (40 min) - Constitutional Vitals: Temp Pulse Resp BP Pulse Ox 97.6 F 75 17 126/70 97 07/22/16 08:15 07/22/16 08:15 07/22/16 08:15 07/22/16 08:15 07/22/16 08:15 General appearance: Present: cooperative, A&O X 3, pleasant, no acute distress, obese, answers questions appropriately - Head Head exam: Present: atraumatic, normocephalic - Eye Eye exam: Present: PERRL, conjuntiva pink, sclera anicteric Pupils: Present: PERRL - Neck Neck exam general surgery: Present: supple, trachea midline. Absent: lymphadenopathy - Respiratory Respiratory exam: Present: CTAB. Absent: accessory muscle use, rales, rhonchi, wheezes - Cardiovascular Cardiovascular exam: Present: RRR, +S1, +S2. Absent: diastolic murmur, gallop, rubs, systolic murmur - GI/Abdominal GI/Abdominal exam: Present: normal bowel sounds, soft, no peritoneal signs. Absent: distended, tenderness - Extremities Exam Extremities exam: Present: warm, radial pulses palpable and symetrical. Absent : calf tenderness, cyanotic, pedal edema Additional comments: Swelling in multiple joints mainly on the right hand and shoulder - Neurological Exam Neurological exam: Present: CN II-XII intact, oriented X3, no focal deficits. Absent: pronater drift, facial droop, speech deficit - Skin Skin exam: Present: dry, intact
== END 2016-07-22 10:18 | disposition home or self-care (01) | DRG 872 ==
LOC: EMEROO 11:44 → 3BNU 11:44 → 3ANU 14:39
PROVIDERS: ADMIT Registered Nurse; ATTEND Registered Nurse

== ENCOUNTER 2017-07-10 10:59 | Inpatient (IN) ==
[2017-07-10] MEDS ORDERED: CeFAZolin Syr 2,000MG/20 ML 2,000 MG/20 ML SYRINGE IVPB ONE (11:25)
[2017-07-10] MEDS ORDERED: Albuterol 2.5 MG/3 ML NEBULIZER IH ONE (11:25)
--- NOTE | 2017-07-10 11:29 | Anesthesia Evaluation PreOp ---
Date of Encounter: 07/10/17 Time of Encounter: 11:26 - Past History Planned Operation: Right Total Shoulder Cardiac History: HTN, Hyperlipidemia, Other (bilateral carotid stenosis) Pulmonary History: Asthma COATING MACHINE OPERATOR History: Other (H/O pituitary tumor treated medically) Other Medical History: Hepatic (cirrhosis), Diabetes Type II, Other (anxiety/ depression, relapsing polychondritis, thrombocytopenia) Anesthesia History: No Prior Anesthetic Complications, Past Anesthesia Alcohol Use: none Drug use: none Medications and Allergies Clopidogrel [Plavix] 75 mg PO DAILY 07/16/16 [History] Folic Acid 1 mg PO DAILY 07/16/16 [History] Metformin HCl [Fortamet] 500 mg PO BID 07/16/16 [History] Simvastatin [Zocor] 20 mg PO HS 07/16/16 [History] Furosemide [Lasix] 20 mg PO BID 07/19/16 [History] Gabapentin [Neurontin] 600 mg PO TID 07/19/16 [History] Lisinopril [Zestril] 5 mg PO DAILY 07/19/16 [History] Albuterol Sulfate [Albuterol Inhaler] 2 puff IH Q4HR PRN 09/05/16 [History] Ferrous Sulfate [Iron] 325 mg PO BID 10/11/16 [History] Methocarbamol [Robaxin] 750 mg PO Q8HR PRN 01/19/17 [History] Tizanidine HCl [Zanaflex] 4 mg PO TID PRN 04/11/17 [History] OxyCODONE Immed Rel [Roxicodone 5 MG] 5 mg PO Q4HR PRN 5 Days #20 tablet [Rx] 3 Allergy/AdvReac Type Severity Reaction Status Date / Time aspirin [ASA] AdvReac Vomiting Verified 02/12/17 17:55 - Meds/Allergy Pre-op Review Medications Reviewed: Yes Allergies Reviewed: Yes Beta Blockers on Current Med List: No Anesthesia Results - Labs Laboratory Tests 07/09/17 07/09/17 07/09/17 15:17 15:17 15:17 WBC 6.7 Hgb 12.6 Hct 35.1 L Plt Count 85 L PT 14.6 H INR 1.3 APTT 33.1 Sodium 137 Potassium 3.6 BUN 7 Creatinine 0.51 L - Imaging EKG: report reviewed (08/19/2016 SINUS RHYTHM) Additional studies: 06/10/2017 Stress Impression: Perfusion imaging was negative for ischemia or infarct. Pharmacologic stress ECG is negative for ischemia at level of heart rate achieved. Gated EF = 68%. 06/10/2017 Echo Impressions: LVEF 65-70%. Mild left ventricular diastolic dysfunction. Normal right ventricular structure and function. Mild eccentric aortic regurgitation. Mild tricuspid regurgitation. No pulmonary hypertension. Anesthesia Exam O2 Sat Height 1.63 m Height 1.63 m Weight 78.925 kg Weight 78.925 kg O2 Sat by Pulse Oximetry 97 Vital Signs Temp Pulse Resp BP Pulse Ox 98.3 F 93 18 124/61 97 07/10/17 11:26 07/10/17 11:26 07/10/17 11:26 07/10/17 11:26 07/10/17 11:26 Height: 5'4'' Weight: 174 lbs NPO (# of Hours): 8 Pain Scale: 0 Pain Scale Used: Numeric (1 - 10) - HEENT Pupil (Motor): EOMI Mallampati: IV Teeth: Normal, Missing (missin 2 upper front teeth) Oral Opening: Greater than 3 - COATING MACHINE OPERATOR LOC: Oriented COATING MACHINE OPERATOR Motor: Normal RUE, Normal LUE, Normal RLE, Normal LLE, Normal Face COATING MACHINE OPERATOR Sensory: Normal: RUE, LUE, RLE, LLE, Face - Cardiac Rhythm: Regular Murmur: Systolic - Pulmonary Breath Sounds: bilateral Clear Respiratory Effort: Symmetrical Anesthesia Assess/Plan ASA Score: 3 Modified Hillary Scale for Level of Consciousness: Cooperative, oriented, and tranquil Anesthetic Plan: General, Regional Monitoring Plan: Standard Monitors Recovery Plan: PACU
[2017-07-10] MEDS ORDERED: Ringers Solution, Lactated 1,000 ML IVC SCH ×2 (11:30→16:12)
--- NOTE | 2017-07-10 11:36 | History & Physical Report ---
Date of Encounter: 07/10/17 Time of Encounter: 11:36 24 Hour HP Update - Instructions Instructions: If the History and Physical is less than 30 days old and was completed prior to A.M. admission and or procedure and has NOT been updated on calendar day of procedure please complete this update prior to performing procedure. - Update Patient reports changes in Medical Condition: No Changes in examination, assessment, or condition: No Changes in Medication: No Preop tests/diagnostics Reviewed: Yes Surgery Remains Indicated: Yes Consent for Planned Operative Procedure(s) Verified: Yes - Pre-Operative Checklist Preoperative Checklist Indicated: No Prophylactic Antibiotic Ordered: Yes Is VTE Prophylaxis Indicated?: Yes
--- NOTE | 2017-07-10 11:52 | Discharge Summary ---
Orders not resulted at time of discharge: Pending orders 07/10/17 09:08 XR shoulder complete RT [XR] Routine Date of Encounter: 07/11/17 Time of Encounter: 06:44 - Discharge Diagnosis (1) Hypertension Priority: Secondary Status: Chronic Qualifiers: Hypertension type: unspecified Qualified Code(s): I10 - Essential (primary ) hypertension (2) Type 2 diabetes mellitus Priority: Secondary Status: Chronic Qualifiers: Diabetes mellitus petroleum terminal plant operator insulin use: unspecified care home insulin use status Diabetes mellitus complication status: with unspecified complications Qualified Code(s): E11.8 - Type 2 diabetes mellitus with unspecified complications (3) Rotator cuff tear arthropathy of right shoulder Priority: Primary Status: Chronic (4) Status post reverse total replacement of right shoulder Priority: Primary Status: Acute (5) Hyperlipidemia Priority: Secondary Status: Chronic Qualifiers: Hyperlipidemia type: unspecified Qualified Code(s): E78.5 - Hyperlipidemia , unspecified (6) Asthma Priority: Secondary Status: Chronic Qualifiers: Asthma severity: unspecified severity Asthma persistence: unspecified Asthma complication type: unspecified Qualified Code(s): J45.909 - Unspecified asthma, uncomplicated - Hospital Course Hospital course: Ms. Marlow is a 57 year old female Status post right total shoulder replacement The patient had an uneventful postoperative course. They received antibiotics and physical therapy and were discharged in stable condition. There will follow -up in the office in 2 weeks. - Time Spent with Patient Total time spent providing and/or coordinating discharge services: - Discharge Medications Home Medications: Clopidogrel [Plavix] 75 mg PO DAILY 07/16/16 [History] Folic Acid 1 mg PO DAILY 07/16/16 [History] Simvastatin [Zocor] 20 mg PO HS 07/16/16 [History] Furosemide [Lasix] 20 mg PO BID 07/19/16 [History] Gabapentin [Neurontin] 600 mg PO TID 07/19/16 [History] Lisinopril [Zestril] 5 mg PO DAILY 07/19/16 [History] Albuterol Sulfate [Albuterol Inhaler] 2 puff IH Q4HR PRN 09/05/16 [History] Ferrous Sulfate [Iron] 325 mg PO BID 10/11/16 [History] Methocarbamol [Robaxin] 750 mg PO Q8HR PRN 01/19/17 [History] Tizanidine HCl [Zanaflex] 4 mg PO TID PRN 04/11/17 [History] Dicyclomine [Bentyl] 20 mg PO QID 07/10/17 [History] FLUoxetine HCl [PROzac] 10 mg PO DAILY 07/10/17 [History] Liraglutide [Victoza 2-Andi] 1.2 mg SQ DAILY 07/10/17 [History] Metformin HCl [Glucophage] 1,000 mg PO BID 07/10/17 [History] OxyCODONE Immed Rel [Roxicodone 5 MG] 5 mg PO Q4HR PRN 5 Days #20 tablet [Rx] Spironolactone [Aldactone] 25 mg PO DAILY 07/10/17 [History] Allergies/Adverse Reactions: 3 Allergy/AdvReac Type Severity Reaction Status Date / Time aspirin [ASA] AdvReac Vomiting Verified 02/12/17 17:55 Primary care physician: Carmita Leal - Patient Status Disposition: Home, Self-Care Condition: Good Functional capacity at discharge: independent ambulation Overall status at discharge: patient is progressing back to baseline - Discharge Instructions Follow Up With: Carmita Leal, GALLEY STRIPPER [Primary Care Provider] -
[2017-07-10] MEDS ORDERED: ROPIVACAINE HCL/PF 0.5% 30 ML VIAL ONE (12:29)
[2017-07-10] MEDS ORDERED: Bupivacaine/Clonidine Syringe 1 EACH SYRINGE ONE (12:29)
[2017-07-10] MEDS ORDERED: Dexamethasone 4 MG/ML VIAL ONE (12:32)
[2017-07-10] MEDS ORDERED: *HR* Midazolam HCl 2 MG/2 ML VIAL ONE (12:32)
[2017-07-10] MEDS ORDERED: *HR* FentaNYL (PF) 100 MCG/2 ML VIAL ONE (12:32)
[2017-07-10] MEDS ORDERED: Lidocaine -MPF 2% 2 ML VIAL ONE (12:36)
[2017-07-10] MEDS ORDERED: *HR* Propofol 200 MG/20 ML VIAL IVP ONE (12:36)
[2017-07-10] MEDS ORDERED: Ketorolac 30 MG/ML VIAL ONE (12:41)
--- NOTE | 2017-07-10 12:56 | Anesthesia Procedures ---
Date of Encounter: 07/10/17 Time of Encounter: 12:45 Procedures: Anesthesia - Nerve Block Procedure Date: 07/10/17 Time: 12:45 Checklist: Correct Patient Identifier, Correct procedure, History checked Correct side: Right Blood Thinner: No Monitor Applied: EKG, BP, Pulse Oximetry Supplemental Oxygen via Nasal Cannula (L/min): 2 Sedation: Versed (mg): 2 Sedation: Fentanyl (mcg): 100 Indication: Post Op Analgesia Block Type: Supraclavicular, Other (ICP/ICB) Catheter placed: No Sterile Technique: Yes Ultrasound used: Yes Anatomy identified: Yes Visual spread of Local: Yes Neuro Stimulation: No Blood on Needle Aspiration: No Smooth Injection of Local: Yes Pain with Injection of Local: No Prep: Chlorhexadine Needle: 22 x 50 mm Stimuplex Local: 0.25% Bupivicaine w/Clonidine 20 mcg/cc (15 ml), Ropivacaine (0.5% with 8 of decadron 30 ml) Volume (cc): 45 Number of Attempts: 1 Complications: None/effective block (`) Vitals: Vital Signs/O2 Sat, Most Current Temp Pulse Resp BP Pulse Ox 98.3 F 99 15 131/72 98 07/10/17 11:29 07/10/17 12:54 07/10/17 12:54 07/10/17 12:54 07/10/17 12:54
[2017-07-10] MEDS ORDERED: *HR* Succinylcholine 200 MG/10 ML VIAL IVP ONE (13:28)
[2017-07-10] MEDS ORDERED: *HR* Rocuronium Bromide 50 MG/5 ML VIAL ONE (13:28)
--- NOTE | 2017-07-10 14:28 | Orthopedic Operative Note ---
Date of procedure: 07/10/17 Pre-op diagnosis: Right shoulder cuff tear arthropathy Post-op diagnosis: same Procedure: Procedure: Total Shoulder Replacment Reverse, right Estimated blood loss: 100 cc Hardware: Metal and polyethylene replacement: Arthrex small glenoid baseplate, 2 4.5 screws. 1 6.5 screw, 36+4 glenosphere, 6 humeral stem, poly insert 6 Exam Under anesthesia: Full motion no instability. Procedural Notes: Irreparable tear rotator cuff tendon. Operative procedure: The patient was brought to the operating room and placed on the operating room table. After general anesthesia was administered the operative shoulder was examined. Findings were noted. The patient was placed in the modified beachchair position. All pressure points were padded appropriately. And the head was stabilized in the neutral position. The operative extremity was prepped and draped in the sterile surgical fashion. The patient received IV antibiotics prior to skin incision. A standard deltopectoral approach was made to the operative shoulder. Incision was made to the skin and subcutaneous tissue,hemo stasis was obtained with Bovie cautery. Using careful blunt dissection the cephalic vein was identified and mobilized medially. The deltopectoral interval was developed and the clavipectoral fascia was incised. The subscap was released off the lesser tuberosity and tagged with #2 FiberWire suture subscap was irreparable. The humerus was dislocated patient noted to have irreparable tear supraspinatus tendon, and the humeral cut was made along the anatomic neck. Anterior and posterior Bankart retractors were placed to expose the glenoid. The glenoid guide was seated and the centering hole was made. It was reamed with the appropriate reamer. Small baseplate was seated and secured with (2) 4.5 screws and one 6.5 screw. The baseplate was irrigated and dried and the 36+4 Glenosphere was seated and secured with the Marinelli taper. The Marinelli taper was tested and found to be secure the humerus was redislocated and prepared with the diaphyseal reamers, followed by a broaching process up to the appropriate size 6 in the patient's anatomic version. The metaphyseal reamer was then utilized. Trial reduction found the shoulder to be relocatable. Trial components were removed and the 6 stem was impacted in place in the patient's anatomic version. Trial reduction found the shoulder to be relocatable and stable with the appropriate 6 Jessica. Trial component was removed and the real implant was seated and secured the shoulder was reduced. The shoulder had excellent motion and excellent stability and no evidence of dislocation. The deep tissue was irrigated with pulse irrigation. The deltopectoral interval was closed with a running #1 PDS suture, subcutaneous tissue was irrigated and closed with 0 PDS suture, the skin was closed with Dermabond. The patient was placed in a sterile dressing, abduction brace and extubated. The patient was then transferred to the recovery room in stable condition. Anesthesia: GETA Surgeon: Jelani Rashid Was there an field assistant present: No Estimated blood loss (cc): 100 Condition: stable Disposition: PACU
[2017-07-10] MEDS ORDERED: *HR* OxyCODONE/APAP 5/325 TABLET PO PRN ×2 (14:43→16:12)
[2017-07-10] MEDS ORDERED: *HR* Promethazine 25 MG/ML VIAL IVP PRN (14:43)
--- NOTE | 2017-07-10 15:07 | Anesthesia Evaluation Post Op ---
Date of Encounter: 07/10/17 Time of Encounter: 15:06 - Vital Signs Vital Signs: Vital Signs/O2 Sat, Most Current Temp Pulse Resp BP Pulse Ox 98.6 F 92 18 124/52 99 07/10/17 14:38 07/10/17 14:58 07/10/17 14:58 07/10/17 14:58 07/10/17 14:58 - Lungs Lungs: Clear Ascult./Percussion - Airway Airway: Non-obstructed - Cardiovascular Regular Rate - Mental Status Mental Status: Alert & Oriented, Answers Appropriately - Pain Pain Scale: 2 Pain Scale used: Numeric (1 - 10) - Nausea Vomiting Nausea Vomiting: Not Present - Hydration Hydration: Ice chips, Has not voided - Discharge PostOp Status: Transfer Patient to floor
[2017-07-10] MEDS ORDERED: Naloxone 0.4 MG/ML INJ IVP PRN (16:12)
[2017-07-10] MEDS ORDERED: Temazepam 15 MG CAPSULE PO PRN (16:12)
[2017-07-10] MEDS ORDERED: Methocarbamol 750 MG TABLET PO PRN (16:12)
[2017-07-10] MEDS ORDERED: *HR* OxyCODONE Immed Rel 5 MG TABLET PO PRN (16:12)
[2017-07-10] MEDS ORDERED: CeFAZolin Pre 2,000 MG/100 ML 2,000 MG/100 ML BAG IVPB SCH (16:12)
[2017-07-10] MEDS ORDERED: traMADol 50 MG TABLET PO PRN (16:12)
[2017-07-10] MEDS ORDERED: tiZANidine 4 MG TABLET PO PRN (16:12)
[2017-07-10] MEDS ORDERED: Sennosides 8.6 MG TABLET PO PRN (16:12)
[2017-07-10] MEDS ORDERED: Ondansetron 4 MG/2 ML VIAL IVP PRN (16:12)
[2017-07-10] MEDS ORDERED: MOM Conc 10 ML UD.LIQ PO PRN (16:12)
[2017-07-10] MEDS: *HR* Enoxaparin 30 MG/0.3 ML SYRINGE SQ SCH (16:42)
[2017-07-10] MEDS: Gabapentin 300 MG CAPSULE PO SCH ×2 (16:42→20:32)
[2017-07-10 16:57] LABS: Hemoglobin 11.6 g/dL (11.5-15.4)
[2017-07-10] MEDS ORDERED: *HR* Enoxaparin 30 MG/0.3 ML SYRINGE SQ SCH (18:00)
[2017-07-10] MEDS: Furosemide 20 MG TABLET PO SCH (20:31)
[2017-07-10] MEDS: *HR* Metformin 500 MG TABLET PO SCH (20:31)
[2017-07-10] MEDS: CeFAZolin Pre 2,000 MG/100 ML 2,000 MG/100 ML BAG IVPB SCH (20:32)
[2017-07-10] MEDS ORDERED: Dextrose Gel 15 GM/37.5 ML TUBE PO PRN ×2 (22:03)
[2017-07-10] MEDS ORDERED: *HR* Dextrose 50 % in Water (Syg) 50 ML SYRINGE IVP PRN (22:03)
[2017-07-10] MEDS ORDERED: D5% in Water 1,000 ML IVC PRN (22:03)
[2017-07-10] MEDS ORDERED: Insulin LISPRO 300 UNITS/3 ML VIAL SQ SCH (22:15)
[2017-07-11 01:39] LABS: Hemoglobin 11.3 g/dL (11.5-15.4)
[2017-07-11] MEDS: CeFAZolin Pre 2,000 MG/100 ML 2,000 MG/100 ML BAG IVPB SCH (05:34)
[2017-07-11] MEDS: *HR* Enoxaparin 30 MG/0.3 ML SYRINGE SQ SCH (05:34)
--- NOTE | 2017-07-11 06:46 | Orthopedics Progress Note ---
Date of Encounter: 07/11/17 Time of Encounter: 06:46 - Assessment and Plan (1) Hypertension Current Visit: Yes Status: Chronic Qualifiers: Hypertension type: unspecified Qualified Code(s): I10 - Essential (primary ) hypertension (2) Type 2 diabetes mellitus Current Visit: Yes Status: Chronic Qualifiers: Diabetes mellitus fdc insulin use: unspecified fdc insulin use status Diabetes mellitus complication status: with unspecified complications Qualified Code(s): E11.8 - Type 2 diabetes mellitus with unspecified complications (3) Rotator cuff tear arthropathy of right shoulder Current Visit: Yes Status: Chronic (4) Status post reverse total replacement of right shoulder Current Visit: Yes Status: Acute (5) Hyperlipidemia Current Visit: Yes Status: Chronic Qualifiers: Hyperlipidemia type: unspecified Qualified Code(s): E78.5 - Hyperlipidemia , unspecified (6) Asthma Current Visit: Yes Status: Chronic Qualifiers: Asthma severity: unspecified severity Asthma persistence: unspecified Asthma complication type: unspecified Qualified Code(s): J45.909 - Unspecified asthma, uncomplicated Subjective Interval history: Patient was seen this morning doing well without complaints. Afebrile vital signs stable. Operative extremity: Neurovascularly intact Dressing clean dry and intact Calves nontender Assessment and plan: Continue with postoperative care Discharge today Objective Vital signs: Vital Signs Temp Pulse Resp BP Pulse Ox 07/11/17 03:37 97.4 F L 84 15 114/72 96 07/10/17 23:56 97.7 F 90 16 119/74 94 07/10/17 19:28 97.7 F 106 15 122/74 95 07/10/17 17:33 100 16 103/57 99 07/10/17 16:41 95 16 123/72 98 07/10/17 16:14 98.2 F 88 16 132/55 100 07/10/17 15:24 97.7 F 89 16 122/77 98 07/10/17 15:08 98.7 F 86 18 125/60 97 07/10/17 14:58 92 18 124/52 99 07/10/17 14:48 86 20 131/60 97 07/10/17 14:38 98.6 F 91 18 141/66 100 07/10/17 13:10 95 16 136/61 96 07/10/17 12:54 99 15 131/72 98 07/10/17 12:39 103 16 140/69 97 07/10/17 11:29 98.3 F 93 18 124/61 97 07/10/17 11:26 98.3 F 93 18 124/61 97 Intake and Output 07/10/17 07/10/17 07/11/17 15:59 23:59 07:59 Intake Total 900 / 900 150 / 150 Output Total 100 / 100 Balance -100 / -100 900 / 900 150 / 150 Intake: IV Fluids 100 / 100 100 / 100 Ancef Premix 2,000 MG/100 ML 2, 100 / 100 100 / 100 000 mg In 100 ml @ 200 mls/hr IVPB Q8H [facility] Rx#:[id number] Oral 800 / 800 50 / 50 Output: Estimated Blood Loss 100 / 100 Other: # Voids 1 1 Weight 78.925 kg Blood Glucose* 131 332 - Labs CBC & BMP: 07/11/17 01:26 Labs: Abnormal lab results Hgb 11.3 g/dL (11.5-15.4) L 07/11/17 01:26 Hct 31.0 % (35.3-44.9) L 07/11/17 01:26 POC Glucose 127 mg/dL (70-99) H 07/10/17 11:23 - VTE Documentation of Mechanical Device: Venous foot pump, device Consult Discharge Plan - Plan Referrals: Carmita Leal CNP [Primary Care Provider] -
[2017-07-11] MEDS ORDERED: Insulin LISPRO 300 UNITS/3 ML VIAL SQ SCH (07:30)
[2017-07-11] MEDS: Furosemide 20 MG TABLET PO SCH (07:51)
[2017-07-11] MEDS: *HR* Metformin 500 MG TABLET PO SCH (07:51)
[2017-07-11] MEDS: Gabapentin 300 MG CAPSULE PO SCH (07:52)
[2017-07-11] MEDS ORDERED: Folic Acid 1 MG TABLET PO SCH (09:00)
[2017-07-11 10:13] VITALS: BP 121/70
--- NOTE | 2017-07-11 12:33 | Event Note ---
Date of Encounter: 07/11/17 Time of Encounter: 08:45 PCR- POD#1 right total shoulder reverse 07/10/2017 Dr. Rashid PCR - Patient seen at bedside. Labwork and medications reviewed. Pain control: Adequate Participating in PT. patient desires outpatient therapy. All questions and concerns addressed. Educated on use of incentive spirometer, ambulation, and hydration. Patient educated on post-operative restrictions and care. Addressed: see above. D/C plan: Home with outpatient therapy today
== END 2017-07-11 11:40 | disposition home or self-care (01) | DRG 483 ==
LOC: SAMDAY 10:59 → 3NENU 15:11
PROVIDERS: ADMIT Orthopaedic Surgery; ATTEND Orthopaedic Surgery

== ENCOUNTER 2019-06-30 12:26 | Observation (INO) ==
[2019-06-30] MEDS ORDERED: 0.9 % Sodium Chloride 1,000 ML IVC ONE (12:38)
[2019-06-30] MEDS ORDERED: 0.9 % Sodium Chloride 1,000 ML ONE (12:38)
[2019-06-30] MEDS ORDERED: Isovue-370 500 ML BOTTLE IVP ONE (12:43)
[2019-06-30 12:56] LABS: Hemoglobin 11.8 g/dL (11.5-15.4)
[2019-06-30 12:58] LABS: Basophils % 0.7 %; Eosinophils # 0.2 K/mcL (0.0-0.6); Hematocrit 35.6 % (35.3-44.9); Immature Granulocytes % 0.3 % (0-4); Immature Platelets 4.7 % (1.1-6.1); Lymphocytes # 1.1 K/mcL (0.6-4.6); Lymphocytes % 17.6 %; Mean Corpuscular HGB Conc 33.1 g/dL (31.6-35.5); Mean Corpuscular Hemoglobin 33.4 pg (28.0-33.3); Mean Corpuscular Volume 100.8 fL (83.0-100.0); Mean Platelet Volume 11.4 fL (9.4-12.4); Monocytes # 0.6 K/mcL (0.0-1.3); Monocytes % 9.5 %; Neutrophils # 4.1 K/mcL (1.6-8.9); Red Blood Count 3.53 M/mcL (3.82-4.97); Red Cell Distribution Width 15.1 % (11.5-14.5); Segmented Neutrophils % 68.9 %
[2019-06-30 13:00] LABS: Platelet Count 66 K/mcL (140-400)
[2019-06-30 13:05] LABS: INR 1.5; Prothrombin Time 16.5 Seconds (9.4-12.1)
[2019-06-30 13:08] LABS: Activated Partial Thrombo Time 37.4 Seconds (26.0-36.0)
[2019-06-30 13:21] LABS: Potassium 3.5 mEq/L (3.5-5.1); Sodium 136 mEq/L (136-145)
[2019-06-30 13:22] LABS: Alanine Aminotransferase 19 Units/L (7-52); Albumin 2.9 g/dL (3.5-5.7); Albumin/Globulin Ratio 0.7 (1.1-2.2); Alkaline Phosphatase 88 Units/L (34-104); Aspartate Amino Transferase 33 Units/L (13-39); BUN/Creatinine Ratio 13 (6-26); Bilirubin,Direct 1.1 mg/dL (0.0-0.2); Bilirubin,Indirect 2.4 mg/dL (0.0-1.0); Bilirubin,Total 3.5 mg/dL (0.3-1.0); Blood Urea Nitrogen 10 mg/dL (8-23); Calcium 9.6 mg/dL (8.6-10.3); Carbon Dioxide 25 mEq/L (23-29); Chloride 102 mEq/L (98-107); Globulin 4.4 g/dL (2.4-3.5); Glucose 272 mg/dL (70-105); Lipase 90 Units/L (11-82); Osmolality,Calculated 291 (280-300); Total Protein 7.3 g/dL (6.4-8.9); Troponin I < 0.03 ng/mL (< 0.04); eGFR For African Americans > 60 (> 60); eGFR For Non-African Americans > 60 (> 60)
[2019-06-30 13:56] LABS: Bilirubin,Urine Negative (Negative); Blood,Urine Negative (Negative); Color,Urine Yellow (Yellow); Glucose,Urine (UA) Normal (Normal); Ketones,Urine Negative (Negative); Leukocyte Esterase,Urine Trace (Negative); Nitrite,Urine Negative (Negative); PH,Urine 5.5 pH Units (5.0-8.0); Protein,Urine Negative (Neg-Trace); Specific Gravity,Urine 1.016 (1.010-1.025); Urobilinogen,Urine Normal (Normal)
[2019-06-30 14:00] LABS: Bacteria,Urine Many per hpf (None-Few); Hyaline Casts,Urine None Seen per lpf (None-Few); RBC,Urine 0-3 per hpf (0-3); Squamous Epithelial Cell,Urine Moderate per lpf (None-Few)
[2019-06-30 14:01] LABS: Clarity,Urine Slightly Cloudy (Clear)
[2019-06-30] MEDS ORDERED: cefTRIAXone 1,000 MG in Water for inj. (sterile) 10 ML IVP ONE (14:33)
[2019-06-30] MEDS ORDERED: Ondansetron 4 MG/2 ML VIAL IVP ONE (14:33)
[2019-06-30] MEDS ORDERED: cefTRIAXone 2,000 MG in Water for inj. (sterile) 20 ML IVP ONE (14:37)
[2019-06-30] MEDS ORDERED: Ondansetron 4 MG/2 ML VIAL IVP PRN (18:21)
[2019-06-30] MEDS ORDERED: Naloxone 0.4 MG/ML INJ IVP PRN (18:21)
[2019-06-30] MEDS ORDERED: *HR* OxyCODONE Immed Rel 5 MG TABLET PO PRN (18:21)
[2019-06-30] MEDS ORDERED: Dextrose Gel 15 GM/37.5 ML TUBE PO PRN ×2 (18:33)
[2019-06-30] MEDS ORDERED: *HR* Dextrose 50 % in Water (Syg) 50 ML SYRINGE IVP PRN (18:33)
[2019-06-30] MEDS ORDERED: D5% in Water 1,000 ML IVC PRN (18:33)
[2019-06-30] MEDS: Insulin DETEMIR 100 UNIT/ML X5UNITS SQ SCH (21:13)
[2019-06-30] MEDS: Insulin LISPRO 300 UNITS/3 ML VIAL SQ SCH (21:14)
[2019-07-01 06:06] LABS: INR 1.6; Prothrombin Time 17.9 Seconds (9.4-12.1)
[2019-07-01 06:12] LABS: Immature Granulocytes % 0.2 % (0-4)
[2019-07-01 06:14] LABS: Basophils % 0.8 %; Eosinophils # 0.2 K/mcL (0.0-0.6); Hemoglobin 9.8 g/dL (11.5-15.4); Immature Platelets 4.1 % (1.1-6.1); Lymphocytes % 21.8 %; Mean Corpuscular HGB Conc 33.8 g/dL (31.6-35.5); Mean Corpuscular Hemoglobin 33.9 pg (28.0-33.3); Mean Corpuscular Volume 100.3 fL (83.0-100.0); Monocytes # 0.6 K/mcL (0.0-1.3); Monocytes % 13.2 %; Neutrophils # 2.9 K/mcL (1.6-8.9); Red Blood Count 2.89 M/mcL (3.82-4.97); Red Cell Distribution Width 14.8 % (11.5-14.5); White Blood Count 4.8 K/mcL (4.3-11.1)
[2019-07-01 06:22] LABS: Lymphocytes # 1.1 K/mcL (0.6-4.6); Platelet Count 53 K/mcL (140-400)
[2019-07-01 06:33] LABS: Alanine Aminotransferase 15 Units/L (7-52); Albumin 2.5 g/dL (3.5-5.7); Albumin/Globulin Ratio 0.7 (1.1-2.2); Alkaline Phosphatase 75 Units/L (34-104); Aspartate Amino Transferase 26 Units/L (13-39); BUN/Creatinine Ratio 15 (6-26); Bilirubin,Total 2.1 mg/dL (0.3-1.0); Blood Urea Nitrogen 10 mg/dL (8-23); Calcium 8.7 mg/dL (8.6-10.3); Carbon Dioxide 27 mEq/L (23-29); Chloride 105 mEq/L (98-107); Globulin 3.5 g/dL (2.4-3.5); Glucose 197 mg/dL (70-105); Magnesium 1.5 mg/dL (1.6-2.6); Osmolality,Calculated 287 (280-300); Phosphorous 4.1 mg/dL (2.7-4.5); Potassium 3.3 mEq/L (3.5-5.1); Sodium 136 mEq/L (136-145); eGFR For African Americans > 60 (> 60); eGFR For Non-African Americans > 60 (> 60)
[2019-07-01] MEDS: Insulin LISPRO 300 UNITS/3 ML VIAL SQ SCH ×4 (08:40→21:29)
[2019-07-01] MEDS: Potassium Chloride Elixir 20 MEQ/15 ML UDC PO SCH ×2 (09:24→13:46)
[2019-07-01] MEDS: cefTRIAXone 1,000 MG in Water for inj. (sterile) 10 ML IVP SCH (09:25)
[2019-07-01] MEDS: methocarbamoL 750 MG TABLET PO SCH ×2 (17:58→21:32)
[2019-07-01] MEDS: Acetaminophen 325 MG TABLET PO PRN (17:58)
[2019-07-01] MEDS: Gabapentin 300 MG CAPSULE PO SCH (21:32)
[2019-07-01] MEDS: Insulin DETEMIR 100 UNIT/ML X5UNITS SQ SCH (21:33)
[2019-07-02] MEDS: methocarbamoL 750 MG TABLET PO SCH ×3 (00:23→07:53)
[2019-07-02 02:48] LABS: Red Cell Distribution Width 14.8 % (11.5-14.5)
[2019-07-02 02:49] LABS: Basophils % 0.6 %; Eosinophils # 0.2 K/mcL (0.0-0.6); Eosinophils % 4.6 %; Hematocrit 31.2 % (35.3-44.9); Hemoglobin 10.4 g/dL (11.5-15.4); Immature Granulocytes % 0.2 % (0-4); Mean Corpuscular HGB Conc 33.3 g/dL (31.6-35.5); Mean Corpuscular Hemoglobin 33.4 pg (28.0-33.3); Mean Corpuscular Volume 100.3 fL (83.0-100.0); Mean Platelet Volume 12.1 fL (9.4-12.4); Monocytes # 0.6 K/mcL (0.0-1.3); Neutrophils # 3.3 K/mcL (1.6-8.9); Red Blood Count 3.11 M/mcL (3.82-4.97); Segmented Neutrophils % 63.6 %; White Blood Count 5.2 K/mcL (4.3-11.1)
[2019-07-02 02:53] LABS: Platelet Count 55 K/mcL (140-400)
[2019-07-02 03:08] LABS: BUN/Creatinine Ratio 14 (6-26); Blood Urea Nitrogen 11 mg/dL (8-23); Calcium 9.4 mg/dL (8.6-10.3); Carbon Dioxide 23 mEq/L (23-29); Chloride 106 mEq/L (98-107); Glucose 144 mg/dL (70-105); Magnesium 1.9 mg/dL (1.6-2.6); Osmolality,Calculated 282 (280-300); Phosphorous 4.4 mg/dL (2.7-4.5); Potassium 4.8 mEq/L (3.5-5.1); Sodium 135 mEq/L (136-145); eGFR For African Americans > 60 (> 60); eGFR For Non-African Americans > 60 (> 60)
[2019-07-02] MEDS: Acetaminophen 325 MG TABLET PO PRN (04:39)
[2019-07-02 06:46] VITALS: BP 119/70
[2019-07-02] MEDS: Gabapentin 300 MG CAPSULE PO SCH (07:52)
[2019-07-02] MEDS: cefTRIAXone 1,000 MG in Water for inj. (sterile) 10 ML IVP SCH (07:53)
[2019-07-02] MEDS: Insulin LISPRO 300 UNITS/3 ML VIAL SQ SCH (07:54)
[2019-07-02] MEDS ORDERED: Folic Acid 1 MG TABLET PO SCH (09:00)
[2019-07-02] MEDS ORDERED: FLUoxetine 20 MG CAPSULE PO SCH (09:00)
== END 2019-07-02 11:10 | disposition home or self-care (01) ==
LOC: EMEROOARM 12:26 → 3ANU 12:26 → SUATTDRO 16:38 → 3ANU 17:25
PROVIDERS: ADMIT Family Medicine; ATTEND Family Medicine

== ENCOUNTER 2020-03-09 05:04 | Observation (INO) ==
[2020-03-09] MEDS ORDERED: Isovue-370 500 ML BOTTLE IVP ONE (05:35)
[2020-03-09] MEDS ORDERED: *HR* FentaNYL (PF) 100 MCG/2 ML VIAL IVP ONE (05:35)
[2020-03-09] MEDS ORDERED: Ondansetron 4 MG/2 ML VIAL IVP ONE (05:35)
[2020-03-09] MEDS ORDERED: 0.9 % Sodium Chloride 1,000 ML IVC ONE (05:37)
[2020-03-09 06:57] LABS: Basophils % 0.5 %; Eosinophils % 0.9 %; Hemoglobin 8.8 g/dL (11.5-15.4); Immature Granulocytes % 0.6 % (0-4); Mean Corpuscular Volume 101.2 fL (83.0-100.0); Segmented Neutrophils % 81.5 %
[2020-03-09 06:59] LABS: Basophils # 0.1 K/mcL (0.0-0.2); Eosinophils # 0.1 K/mcL (0.0-0.6); Hematocrit 25.8 % (35.3-44.9); Immature Platelets 5.2 % (1.1-6.1); Lymphocytes # 1.4 K/mcL (0.6-4.6); Lymphocytes % 9.1 %; Mean Corpuscular HGB Conc 34.1 g/dL (31.6-35.5); Mean Corpuscular Hemoglobin 34.5 pg (28.0-33.3); Mean Platelet Volume 11.3 fL (9.4-12.4); Monocytes # 1.1 K/mcL (0.0-1.3); Monocytes % 7.4 %; Neutrophils # 12.1 K/mcL (1.6-8.9); Red Blood Count 2.55 M/mcL (3.82-4.97); Red Cell Distribution Width 14.6 % (11.5-14.5); White Blood Count 14.8 K/mcL (4.3-11.1)
[2020-03-09 07:00] LABS: Platelet Count 93 K/mcL (140-400)
[2020-03-09 07:18] LABS: Alanine Aminotransferase 19 Units/L (7-52); Albumin 3.2 g/dL (3.5-5.7); Albumin/Globulin Ratio 1.1 (1.1-2.2); Alkaline Phosphatase 50 Units/L (34-104); Aspartate Amino Transferase 30 Units/L (13-39); BUN/Creatinine Ratio 43 (6-26); Bilirubin,Direct 0.7 mg/dL (0.0-0.2); Bilirubin,Indirect 2.1 mg/dL (0.0-1.0); Bilirubin,Total 2.8 mg/dL (0.3-1.0); Blood Urea Nitrogen 37 mg/dL (8-23); Calcium 9.6 mg/dL (8.6-10.3); Carbon Dioxide 25 mEq/L (23-29); Chloride 104 mEq/L (98-107); Globulin 2.9 g/dL (2.4-3.5); Glucose 193 mg/dL (70-105); Lipase 41 Units/L (11-82); Osmolality,Calculated 298 (280-300); Potassium 4.1 mEq/L (3.5-5.1); Sodium 137 mEq/L (136-145); Total Protein 6.1 g/dL (6.4-8.9); eGFR For African Americans > 60 (> 60); eGFR For Non-African Americans > 60 (> 60)
[2020-03-09] MEDS ORDERED: Metoclopramide 10 MG/2 ML VIAL IVP ONE (08:21)
[2020-03-09 09:26] LABS: Bacteria,Urine Few per hpf (None-Few); Bilirubin,Urine Negative (Negative); Blood,Urine Large (Negative); Clarity,Urine Clear (Clear); Color,Urine Light-Orange (Yellow); Glucose,Urine (UA) Normal (Normal); Ketones,Urine Negative (Negative); Leukocyte Esterase,Urine Large (Negative); Mucus,Urine Few per lpf (None-Few); Nitrite,Urine Negative (Negative); Protein,Urine 30 mg/dL (Neg-Trace); RBC,Urine 30-50 per hpf (0-3); Specific Gravity,Urine > 1.030 (1.010-1.025); Squamous Epithelial Cell,Urine Moderate per hpf (None-Few); Urobilinogen,Urine Normal (Normal); WBC,Urine TNTC per hpf (0-3)
[2020-03-09] MEDS ORDERED: Naloxone 0.4 MG/ML INJ IVP PRN (09:48)
[2020-03-09] MEDS ORDERED: Ringers Solution, Lactated 1,000 ML IVC SCH (10:00)
[2020-03-09] MEDS ORDERED: Ondansetron 4 MG/2 ML VIAL IVP PRN (10:08)
[2020-03-09 11:18] LABS: Hemoglobin 8.2 g/dL (11.5-15.4)
[2020-03-09] MEDS: cefTRIAXone 1,000 MG in Water for inj. (sterile) 10 ML IVP SCH (12:17)
[2020-03-09] MEDS: Pantoprazole 40 MG VIAL IVP SCH ×2 (12:18→18:18)
[2020-03-09] MEDS: Gabapentin 300 MG CAPSULE PO SCH ×2 (15:42→21:10)
[2020-03-09] MEDS: methocarbamoL 750 MG TABLET PO SCH ×2 (15:43→21:10)
[2020-03-09 16:27] LABS: Hematocrit 23.8 % (35.3-44.9); Hemoglobin 8.1 g/dL (11.5-15.4)
[2020-03-09] MEDS ORDERED: *HR* Heparin 5,000 UNIT/ML VIAL SQ SCH (18:00)
[2020-03-09 22:55] LABS: Hematocrit 19.4 % (35.3-44.9); Hemoglobin 6.6 g/dL (11.5-15.4)
[2020-03-09] MEDS ORDERED: Octreotide 50 MCG/ML INJ IVP ONE (23:54)
[2020-03-10] MEDS: Octreotide 400 MCG in 0.9 % Sodium Chloride 100 ML IVC SCH ×2 (00:55→13:51)
[2020-03-10] MEDS: 0.9 % Sodium Chloride 250 ML IVC SCH ×2 (03:04→21:06)
[2020-03-10] MEDS: Pantoprazole 40 MG VIAL IVP SCH ×2 (05:59→18:30)
[2020-03-10] MEDS: cefTRIAXone 1,000 MG in Water for inj. (sterile) 10 ML IVP SCH (07:56)
[2020-03-10] MEDS: methocarbamoL 750 MG TABLET PO SCH (07:58)
[2020-03-10] MEDS: Gabapentin 300 MG CAPSULE PO SCH (07:58)
[2020-03-10] MEDS: Folic Acid 1 MG TABLET PO SCH (07:58)
[2020-03-10] MEDS: FLUoxetine 20 MG CAPSULE PO SCH (07:58)
[2020-03-10 08:03] LABS: Basophils % 0.7 %; Hematocrit 21.7 % (35.3-44.9); Nucleated Red Blood Cells 0.3 /100 WBC (0)
[2020-03-10 08:05] LABS: Basophils # 0.1 K/mcL (0.0-0.2); Eosinophils # 0.4 K/mcL (0.0-0.6); Eosinophils % 3.4 %; Hemoglobin 7.7 g/dL (11.5-15.4); Immature Granulocytes % 3.1 % (0-4); Immature Platelets 4.5 % (1.1-6.1); Lymphocytes % 17.5 %; Mean Corpuscular HGB Conc 35.5 g/dL (31.6-35.5); Mean Corpuscular Hemoglobin 32.9 pg (28.0-33.3); Mean Corpuscular Volume 92.7 fL (83.0-100.0); Mean Platelet Volume 10.6 fL (9.4-12.4); Monocytes # 1.2 K/mcL (0.0-1.3); Neutrophils # 7.5 K/mcL (1.6-8.9); Red Blood Count 2.34 M/mcL (3.82-4.97); Red Cell Distribution Width 19.2 % (11.5-14.5); Segmented Neutrophils % 65.3 %; White Blood Count 11.5 K/mcL (4.3-11.1)
[2020-03-10 08:06] LABS: BUN/Creatinine Ratio 44 (6-26); Blood Urea Nitrogen 34 mg/dL (8-23); Carbon Dioxide 24 mEq/L (23-29); Chloride 103 mEq/L (98-107); Glucose 138 mg/dL (70-105); Osmolality,Calculated 286 (280-300); Potassium 4.3 mEq/L (3.5-5.1); Sodium 133 mEq/L (136-145); eGFR For African Americans > 60 (> 60); eGFR For Non-African Americans > 60 (> 60)
[2020-03-10 08:22] LABS: Platelet Count 62 K/mcL (140-400)
[2020-03-10] MEDS ORDERED: *HR* Propofol 200 MG/20 ML VIAL IVP ONE (09:50)
[2020-03-10] MEDS ORDERED: Lidocaine -MPF 2% 2 ML VIAL ONE ×3 (09:51→11:01)
[2020-03-10 16:56] LABS: Hematocrit 20.1 % (35.3-44.9)
[2020-03-10] MEDS ORDERED: SODIUM CHLORIDE/NAHCO3/KCL/PEG 4,000 ML SOLN.RECON PO ONE (18:11)
[2020-03-10] MEDS ORDERED: 0.9 % Sodium Chloride 250 ML ONE (20:29)
[2020-03-11] MEDS: Pantoprazole 40 MG VIAL IVP SCH ×2 (05:09→16:45)
[2020-03-11 05:26] LABS: Basophils % 0.7 %; Hematocrit 23.5 % (35.3-44.9); Hemoglobin 8.1 g/dL (11.5-15.4); Mean Corpuscular HGB Conc 34.5 g/dL (31.6-35.5); Nucleated Red Blood Cells 0.4 /100 WBC (0); Red Cell Distribution Width 19.6 % (11.5-14.5)
[2020-03-11 05:28] LABS: Basophils # 0.1 K/mcL (0.0-0.2); Eosinophils # 0.3 K/mcL (0.0-0.6); Eosinophils % 3.7 %; Immature Granulocytes % 1.3 % (0-4); Immature Platelets 5.3 % (1.1-6.1); Lymphocytes # 0.8 K/mcL (0.6-4.6); Lymphocytes % 10.9 %; Mean Corpuscular Volume 92.9 fL (83.0-100.0); Mean Platelet Volume 11.5 fL (9.4-12.4); Monocytes # 0.5 K/mcL (0.0-1.3); Neutrophils # 5.8 K/mcL (1.6-8.9); Red Blood Count 2.53 M/mcL (3.82-4.97); Segmented Neutrophils % 76.4 %; White Blood Count 7.6 K/mcL (4.3-11.1)
[2020-03-11 05:33] LABS: Platelet Count 53 K/mcL (140-400)
[2020-03-11 05:37] LABS: BUN/Creatinine Ratio 31 (6-26); Blood Urea Nitrogen 21 mg/dL (8-23); Calcium 8.2 mg/dL (8.6-10.3); Carbon Dioxide 24 mEq/L (23-29); Chloride 104 mEq/L (98-107); Glucose 132 mg/dL (70-105); Osmolality,Calculated 289 (280-300); Potassium 3.7 mEq/L (3.5-5.1); Sodium 137 mEq/L (136-145); eGFR For African Americans > 60 (> 60); eGFR For Non-African Americans > 60 (> 60)
[2020-03-11] MEDS: cefTRIAXone 1,000 MG in Water for inj. (sterile) 10 ML IVP SCH (07:38)
[2020-03-11] MEDS: Folic Acid 1 MG TABLET PO SCH (07:39)
[2020-03-11] MEDS: FLUoxetine 20 MG CAPSULE PO SCH (07:39)
[2020-03-11] MEDS ORDERED: *HR* Dextrose 50 % in Water (Vial) 50 ML VIAL IVP PRN (07:46)
[2020-03-11] MEDS ORDERED: D5% in Water 1,000 ML IVC PRN (07:46)
[2020-03-11] MEDS ORDERED: Dextrose Gel 15 GM/37.5 ML TUBE PO PRN ×2 (07:46)
[2020-03-11] MEDS ORDERED: Lidocaine -MPF 2% 2 ML VIAL ONE (10:47)
[2020-03-11 18:33] LABS: Hematocrit 23.7 % (35.3-44.9); Hemoglobin 8.1 g/dL (11.5-15.4)
[2020-03-12] MEDS: Octreotide 400 MCG in 0.9 % Sodium Chloride 100 ML IVC SCH (00:57)
[2020-03-12 04:27] LABS: Basophils % 0.5 %; Lymphocytes % 9.7 %; Mean Corpuscular HGB Conc 34.3 g/dL (31.6-35.5); Mean Corpuscular Hemoglobin 33.1 pg (28.0-33.3); Nucleated Red Blood Cells 0.3 /100 WBC (0)
[2020-03-12 04:29] LABS: Eosinophils # 0.3 K/mcL (0.0-0.6); Eosinophils % 3.6 %; Hematocrit 23.9 % (35.3-44.9); Hemoglobin 8.2 g/dL (11.5-15.4); Immature Granulocytes % 1.5 % (0-4); Immature Platelets 4.1 % (1.1-6.1); Lymphocytes # 0.7 K/mcL (0.6-4.6); Mean Corpuscular Volume 96.4 fL (83.0-100.0); Mean Platelet Volume 11.2 fL (9.4-12.4); Monocytes # 0.7 K/mcL (0.0-1.3); Neutrophils # 5.6 K/mcL (1.6-8.9); Red Blood Count 2.48 M/mcL (3.82-4.97); Segmented Neutrophils % 75.7 %; White Blood Count 7.4 K/mcL (4.3-11.1)
[2020-03-12 04:32] LABS: Platelet Count 65 K/mcL (140-400)
[2020-03-12 04:46] LABS: BUN/Creatinine Ratio 18 (6-26); Blood Urea Nitrogen 11 mg/dL (8-23); Calcium 8.1 mg/dL (8.6-10.3); Carbon Dioxide 28 mEq/L (23-29); Chloride 105 mEq/L (98-107); Glucose 138 mg/dL (70-105); Osmolality,Calculated 284 (280-300); Potassium 3.4 mEq/L (3.5-5.1); Sodium 136 mEq/L (136-145); eGFR For African Americans > 60 (> 60); eGFR For Non-African Americans > 60 (> 60)
[2020-03-12] MEDS: Pantoprazole 40 MG VIAL IVP SCH ×2 (05:13→16:55)
[2020-03-12] MEDS ORDERED: Potassium Chloride 20 MEQ, Lidocaine 1% 2 ML in 0.9 % Sodium Chloride 250 ML IVPB ONE (08:06)
[2020-03-12] MEDS: cefTRIAXone 1,000 MG in Water for inj. (sterile) 10 ML IVP SCH (08:10)
[2020-03-12] MEDS: Folic Acid 1 MG TABLET PO SCH (08:10)
[2020-03-12] MEDS: FLUoxetine 20 MG CAPSULE PO SCH (08:11)
[2020-03-12] MEDS ORDERED: Potassium Chloride 40 MEQ, Lidocaine 1% 2 ML in 0.9 % Sodium Chloride 500 ML IVPB ONE (16:52)
[2020-03-13 04:55] LABS: Basophils % 0.6 %; Segmented Neutrophils % 72.5 %
[2020-03-13 04:57] LABS: Eosinophils # 0.3 K/mcL (0.0-0.6); Eosinophils % 4.1 %; Hematocrit 22.6 % (35.3-44.9); Hemoglobin 7.6 g/dL (11.5-15.4); Immature Granulocytes % 1.7 % (0-4); Immature Platelets 4.9 % (1.1-6.1); Lymphocytes # 0.7 K/mcL (0.6-4.6); Lymphocytes % 10.3 %; Mean Corpuscular HGB Conc 33.6 g/dL (31.6-35.5); Mean Corpuscular Hemoglobin 32.5 pg (28.0-33.3); Mean Corpuscular Volume 96.6 fL (83.0-100.0); Mean Platelet Volume 10.9 fL (9.4-12.4); Monocytes # 0.7 K/mcL (0.0-1.3); Monocytes % 10.8 %; Neutrophils # 4.6 K/mcL (1.6-8.9); Red Blood Count 2.34 M/mcL (3.82-4.97); Red Cell Distribution Width 20.3 % (11.5-14.5); White Blood Count 6.3 K/mcL (4.3-11.1)
[2020-03-13 04:59] LABS: Platelet Count 61 K/mcL (140-400)
[2020-03-13 05:32] LABS: BUN/Creatinine Ratio 14 (6-26); Blood Urea Nitrogen 10 mg/dL (8-23); Calcium 7.9 mg/dL (8.6-10.3); Carbon Dioxide 28 mEq/L (23-29); Chloride 105 mEq/L (98-107); Glucose 154 mg/dL (70-105); Magnesium 1.6 mg/dL (1.6-2.6); Osmolality,Calculated 282 (280-300); Potassium 4.1 mEq/L (3.5-5.1); Sodium 135 mEq/L (136-145); eGFR For African Americans > 60 (> 60); eGFR For Non-African Americans > 60 (> 60)
[2020-03-13] MEDS: Pantoprazole 40 MG VIAL IVP SCH (06:24)
[2020-03-13] MEDS: cefTRIAXone 1,000 MG in Water for inj. (sterile) 10 ML IVP SCH (07:59)
[2020-03-13] MEDS: Folic Acid 1 MG TABLET PO SCH (08:00)
[2020-03-13] MEDS: FLUoxetine 20 MG CAPSULE PO SCH (08:00)
[2020-03-13 10:59] VITALS: BP 127/62
[2020-03-13 13:31] LABS: Hematocrit 24.8 % (35.3-44.9); Hemoglobin 8.4 g/dL (11.5-15.4)
== END 2020-03-13 18:28 | disposition home or self-care (01) ==
LOC: EMEROOARM 05:04 → 3BNU 05:04
PROVIDERS: ADMIT Internal Medicine; ATTEND Internal Medicine

== ENCOUNTER 2021-01-04 21:14 | Observation (INO) ==
[2021-01-04] MEDS ORDERED: Ondansetron 4 MG/2 ML VIAL IVP ONE (21:42)
[2021-01-04] MEDS ORDERED: Isovue-370 500 ML BOTTLE IVP ONE (21:42)
[2021-01-04] MEDS ORDERED: *HR* LORazepam 2 MG/ML VIAL IVP ONE (21:45)
[2021-01-04 22:02] LABS: Basophils % 0.7 %; Monocytes % 9.2 %; Red Cell Distribution Width 13.1 % (11.5-14.5)
[2021-01-04 22:04] LABS: Basophils # 0.1 K/mcL (0.0-0.2); Eosinophils # 0.2 K/mcL (0.0-0.6); Eosinophils % 3.3 %; Hematocrit 30.8 % (35.3-44.9); Hemoglobin 10.2 g/dL (11.5-15.4); Immature Granulocytes % 0.4 % (0-4); Immature Platelets 2.6 % (1.1-6.1); Lymphocytes # 0.7 K/mcL (0.6-4.6); Lymphocytes % 8.8 %; Mean Corpuscular HGB Conc 33.1 g/dL (31.6-35.5); Mean Corpuscular Hemoglobin 33.3 pg (28.0-33.3); Mean Corpuscular Volume 100.7 fL (83.0-100.0); Mean Platelet Volume 10.5 fL (9.4-12.4); Monocytes # 0.7 K/mcL (0.0-1.3); Neutrophils # 5.7 K/mcL (1.6-8.9); Red Blood Count 3.06 M/mcL (3.82-4.97); Segmented Neutrophils % 77.6 %; White Blood Count 7.4 K/mcL (4.3-11.1)
[2021-01-04 22:06] LABS: Platelet Count 67 K/mcL (140-400)
[2021-01-04 23:47] LABS: Alanine Aminotransferase 16 Units/L (7-52); Albumin 2.8 g/dL (3.5-5.7); Alkaline Phosphatase 94 Units/L (34-104); Aspartate Amino Transferase 35 Units/L (13-39); BUN/Creatinine Ratio 6 (6-26); Blood Urea Nitrogen 6 mg/dL (8-23); Calcium 8.2 mg/dL (8.6-10.3); Carbon Dioxide 23 mEq/L (23-29); Chloride 107 mEq/L (98-107); Glucose 169 mg/dL (70-105); Lipase 58 Units/L (11-82); Osmolality,Calculated 288 (280-300); Potassium 3.6 mEq/L (3.5-5.1); Sodium 138 mEq/L (136-145); Troponin I < 0.03 ng/mL (< 0.04); eGFR For African Americans > 60 (> 60); eGFR For Non-African Americans > 60 (> 60)
[2021-01-04 23:52] LABS: Albumin/Globulin Ratio 0.9 (1.1-2.2); Total Protein 5.8 g/dL (6.4-8.9)
[2021-01-05 00:35] LABS: Magnesium 1.6 mg/dL (1.6-2.6)
[2021-01-05] MEDS ORDERED: Ondansetron 4 MG/2 ML VIAL IVP PRN ×2 (01:31→19:59)
[2021-01-05] MEDS ORDERED: Ketorolac 15 MG/ML VIAL IVP PRN ×2 (01:31→19:59)
[2021-01-05] MEDS ORDERED: Naloxone 0.4 MG/ML INJ IVP PRN ×2 (01:31→19:59)
[2021-01-05] MEDS ORDERED: Melatonin 3 MG TABLET PO PRN ×2 (01:31→19:59)
[2021-01-05] MEDS ORDERED: Acetaminophen 325 MG TABLET PO PRN (01:31)
[2021-01-05] MEDS ORDERED: Dextrose Gel 15 GM/37.5 ML TUBE PO PRN ×4 (01:36→19:59)
[2021-01-05] MEDS ORDERED: D5% in Water 1,000 ML IVC PRN ×2 (01:36→19:59)
[2021-01-05] MEDS ORDERED: *HR* Dextrose 50 % in Water (Syg) 50 ML SYRINGE IVP PRN ×2 (01:36→19:59)
[2021-01-05] MEDS ORDERED: Lactulose Oral Soln 20 GM/30 ML UDC PO ONE (01:50)
[2021-01-05] MEDS: Ringers Solution, Lactated 1,000 ML IVC SCH ×2 (02:09→12:23)
[2021-01-05 03:21] LABS: Bilirubin,Urine Negative (Negative); Blood,Urine Moderate (Negative); Clarity,Urine Clear (Clear); Color,Urine Yellow (Yellow); Glucose,Urine (UA) Normal (Normal); Ketones,Urine Negative (Negative); Leukocyte Esterase,Urine Moderate (Negative); Mucus,Urine Few per lpf (None-Few); Nitrite,Urine Negative (Negative); PH,Urine 6.5 pH Units (5.0-8.0); Protein,Urine Trace mg/dL (Neg-Trace); RBC,Urine 30-50 per hpf (0-3); Specific Gravity,Urine > 1.030 (1.010-1.025); Squamous Epithelial Cell,Urine Few per hpf (None-Few); Urobilinogen,Urine Normal (Normal); WBC,Urine 30-50 per hpf (0-3)
[2021-01-05 04:39] LABS: Eosinophils % 0.1 %; Hemoglobin 9.4 g/dL (11.5-15.4)
[2021-01-05 04:42] LABS: Basophils % 0.4 %; Immature Granulocytes % 0.4 % (0-4); Lymphocytes # 0.3 K/mcL (0.6-4.6); Lymphocytes % 4.1 %; Mean Corpuscular HGB Conc 33.6 g/dL (31.6-35.5); Mean Corpuscular Hemoglobin 33.6 pg (28.0-33.3); Mean Platelet Volume 11.2 fL (9.4-12.4); Monocytes # 0.5 K/mcL (0.0-1.3); Monocytes % 5.8 %; Red Cell Distribution Width 12.8 % (11.5-14.5); Segmented Neutrophils % 89.2 %; White Blood Count 7.9 K/mcL (4.3-11.1)
[2021-01-05 04:48] LABS: BUN/Creatinine Ratio 8 (6-26); Blood Urea Nitrogen 8 mg/dL (8-23); Calcium 8.5 mg/dL (8.6-10.3); Carbon Dioxide 23 mEq/L (23-29); Chloride 107 mEq/L (98-107); Glucose 180 mg/dL (70-105); Osmolality,Calculated 291 (280-300); Potassium 3.9 mEq/L (3.5-5.1); Sodium 139 mEq/L (136-145); eGFR For African Americans > 60 (> 60); eGFR For Non-African Americans 60 (> 60)
[2021-01-05 04:58] LABS: Neutrophils # 7.1 K/mcL (1.6-8.9); Platelet Count 53 K/mcL (140-400)
[2021-01-05] MEDS: Insulin LISPRO 300 UNITS/3 ML VIAL SUBQ SCH ×3 (05:43→19:36)
[2021-01-05] MEDS ORDERED: cefTRIAXone 1,000 MG in Water for inj. (sterile) 10 ML IVP SCH (09:00)
[2021-01-05] MEDS ORDERED: Lidocaine -MPF 2% 5 ML VIAL ONE (18:07)
[2021-01-05] MEDS ORDERED: *HR* FentaNYL (PF) 100 MCG/2 ML VIAL ONE (18:07)
[2021-01-05] MEDS ORDERED: *HR* Propofol 200 MG/20 ML VIAL IVP ONE (18:07)
[2021-01-05] MEDS ORDERED: Ondansetron 4 MG/2 ML VIAL ONE (18:07)
[2021-01-05] MEDS ORDERED: Isovue-300 50ML VIAL ONE (18:35)
[2021-01-05] MEDS ORDERED: *HR* FentaNYL (PF) 100 MCG/2 ML VIAL IVP PRN (18:43)
[2021-01-05] MEDS: Gabapentin 300 MG CAPSULE PO SCH (20:47)
[2021-01-05] MEDS ORDERED: Gabapentin 300 MG CAPSULE PO SCH (21:00)
[2021-01-06] MEDS: Insulin LISPRO 300 UNITS/3 ML VIAL SUBQ SCH ×6 (00:19→21:54)
[2021-01-06] MEDS: Acetaminophen 325 MG TABLET PO PRN ×2 (05:17→22:58)
[2021-01-06 06:00] LABS: Hematocrit 24.8 % (35.3-44.9); Hemoglobin 8.1 g/dL (11.5-15.4)
[2021-01-06 06:19] LABS: Calcium 7.8 mg/dL (8.6-10.3); Magnesium 1.9 mg/dL (1.6-2.6); Phosphorous 3.2 mg/dL (2.7-4.5); Potassium 3.7 mEq/L (3.5-5.1)
[2021-01-06] MEDS ORDERED: 0.9 % Sodium Chloride 1,000 ML IVC SCH (07:15)
[2021-01-06] MEDS ORDERED: Furosemide 40 MG TABLET PO SCH (09:00)
[2021-01-06] MEDS ORDERED: FLUoxetine 20 MG CAPSULE PO SCH (09:00)
[2021-01-06] MEDS ORDERED: Folic Acid 1 MG TABLET PO SCH (09:00)
[2021-01-06] MEDS: Folic Acid 1 MG TABLET PO SCH (09:21)
[2021-01-06] MEDS: Furosemide 40 MG TABLET PO SCH (09:21)
[2021-01-06] MEDS: FLUoxetine 20 MG CAPSULE PO SCH (09:21)
[2021-01-06] MEDS: cefTRIAXone 1,000 MG in Water for inj. (sterile) 10 ML IVP SCH (09:22)
[2021-01-06] MEDS: Gabapentin 300 MG CAPSULE PO SCH ×3 (09:22→21:45)
[2021-01-07 03:18] LABS: BUN/Creatinine Ratio 14 (6-26); Blood Urea Nitrogen 16 mg/dL (8-23); Calcium 7.5 mg/dL (8.6-10.3); Carbon Dioxide 26 mEq/L (23-29); Chloride 107 mEq/L (98-107); Glucose 135 mg/dL (70-105); Magnesium 1.8 mg/dL (1.6-2.6); Osmolality,Calculated 285 (280-300); Sodium 136 mEq/L (136-145); eGFR For African Americans > 60 (> 60); eGFR For Non-African Americans 50 (> 60)
[2021-01-07] MEDS: Insulin LISPRO 300 UNITS/3 ML VIAL SUBQ SCH ×4 (08:36→20:14)
[2021-01-07] MEDS: cefTRIAXone 1,000 MG in Water for inj. (sterile) 10 ML IVP SCH (09:48)
[2021-01-07] MEDS: Gabapentin 300 MG CAPSULE PO SCH ×3 (09:49→20:22)
[2021-01-07] MEDS: Folic Acid 1 MG TABLET PO SCH (09:49)
[2021-01-07] MEDS: FLUoxetine 20 MG CAPSULE PO SCH (09:49)
[2021-01-07] MEDS: Furosemide 40 MG TABLET PO SCH (09:49)
[2021-01-07 10:25] LABS: Basophils # 0.1 K/mcL (0.0-0.2); Basophils % 0.7 %; Eosinophils # 0.3 K/mcL (0.0-0.6); Eosinophils % 4.6 %; Hematocrit 26.4 % (35.3-44.9); Hemoglobin 8.6 g/dL (11.5-15.4); Immature Granulocytes % 0.4 % (0-4); Lymphocytes # 0.7 K/mcL (0.6-4.6); Lymphocytes % 9.3 %; Mean Corpuscular HGB Conc 32.6 g/dL (31.6-35.5); Mean Corpuscular Hemoglobin 32.8 pg (28.0-33.3); Mean Corpuscular Volume 100.8 fL (83.0-100.0); Monocytes # 0.8 K/mcL (0.0-1.3); Monocytes % 10.7 %; Neutrophils # 5.4 K/mcL (1.6-8.9); Red Blood Count 2.62 M/mcL (3.82-4.97); Red Cell Distribution Width 13.2 % (11.5-14.5); Segmented Neutrophils % 74.3 %; White Blood Count 7.2 K/mcL (4.3-11.1)
[2021-01-07 10:27] LABS: Platelet Count 48 K/mcL (140-400)
[2021-01-07 22:33] VITALS: O2SAT 97
[2021-01-08 01:28] LABS: Basophils % 0.6 %; Hemoglobin 8.4 g/dL (11.5-15.4); Red Cell Distribution Width 12.8 % (11.5-14.5)
[2021-01-08 01:30] LABS: Eosinophils # 0.3 K/mcL (0.0-0.6); Eosinophils % 4.5 %; Hematocrit 25.1 % (35.3-44.9); Immature Granulocytes % 0.4 % (0-4); Immature Platelets 3.8 % (1.1-6.1); Lymphocytes # 0.9 K/mcL (0.6-4.6); Lymphocytes % 12.9 %; Mean Corpuscular HGB Conc 33.5 g/dL (31.6-35.5); Mean Corpuscular Hemoglobin 32.9 pg (28.0-33.3); Mean Corpuscular Volume 98.4 fL (83.0-100.0); Mean Platelet Volume 11.1 fL (9.4-12.4); Monocytes % 14.6 %; Neutrophils # 4.6 K/mcL (1.6-8.9); Red Blood Count 2.55 M/mcL (3.82-4.97); White Blood Count 6.8 K/mcL (4.3-11.1)
[2021-01-08 01:39] LABS: Platelet Count 53 K/mcL (140-400)
[2021-01-08 01:49] LABS: BUN/Creatinine Ratio 18 (6-26); Blood Urea Nitrogen 15 mg/dL (8-23); Calcium 7.7 mg/dL (8.6-10.3); Carbon Dioxide 26 mEq/L (23-29); Chloride 104 mEq/L (98-107); Glucose 132 mg/dL (70-105); Magnesium 1.7 mg/dL (1.6-2.6); Osmolality,Calculated 281 (280-300); Phosphorous 2.5 mg/dL (2.7-4.5); Potassium 3.8 mEq/L (3.5-5.1); Sodium 134 mEq/L (136-145); eGFR For African Americans > 60 (> 60); eGFR For Non-African Americans > 60 (> 60)
[2021-01-08] MEDS: Insulin LISPRO 300 UNITS/3 ML VIAL SUBQ SCH ×2 (09:54→12:18)
[2021-01-08] MEDS: cefTRIAXone 1,000 MG in Water for inj. (sterile) 10 ML IVP SCH (10:04)
[2021-01-08] MEDS: FLUoxetine 20 MG CAPSULE PO SCH (10:05)
[2021-01-08] MEDS: Gabapentin 300 MG CAPSULE PO SCH ×2 (10:05→12:10)
[2021-01-08] MEDS: Furosemide 40 MG TABLET PO SCH (10:06)
[2021-01-08] MEDS: Folic Acid 1 MG TABLET PO SCH (10:06)
[2021-01-08 12:05] VITALS: BP 106/63; PULSE 80; TEMP 97.6
== END 2021-01-08 17:25 | disposition home or self-care (01) ==
LOC: EMEROOARM 21:14 → 3BNU 21:14 → SUATTDRO 01-05 02:29 → 3BNU 01-05 03:35
PROVIDERS: ADMIT Internal Medicine; ATTEND Internal Medicine

== ENCOUNTER 2021-09-07 11:53 | Inpatient (IN) ==
[2021-09-07] MEDS ORDERED: Bacitracin OINT PKT TP ONE (12:35)
[2021-09-07] MEDS ORDERED: Vancomycin 1,000 MG VIAL ONE (12:35)
[2021-09-07] MEDS ORDERED: Ethanol\\Acetic Acid\\Na Ace\\Ben 1,000 ML IRRIG.SOLN IR ONE (12:35)
[2021-09-07] MEDS ORDERED: *HR* HYDROmorphone PF 0.5 MG/0.5 ML SYRINGE IVP PRN (12:40)
[2021-09-07] MEDS ORDERED: flumazeniL 0.5 MG/5 ML VIAL IVP PRN (12:40)
[2021-09-07] MEDS ORDERED: Ipratropium Neb 0.5 MG NEBULIZER IH PRN (12:40)
[2021-09-07] MEDS ORDERED: Ondansetron 4 MG/2 ML VIAL IVP PRN (12:40)
[2021-09-07] MEDS ORDERED: *HR* Meperidine 25 MG/ML SYRINGE IVP PRN (12:40)
[2021-09-07] MEDS ORDERED: Albuterol 2.5 MG/3 ML NEBULIZER IH PRN (12:40)
[2021-09-07] MEDS ORDERED: *HR* OxyCODONE Immed Rel 5 MG TABLET PO PRN (12:40)
[2021-09-07] MEDS ORDERED: *HR* Labetalol 20 MG/4 ML SYRINGE IVP PRN (12:40)
[2021-09-07] MEDS ORDERED: *HR* FentaNYL (PF) 100 MCG/2 ML VIAL IVP PRN (12:40)
[2021-09-07] MEDS ORDERED: *HR* Rocuronium Bromide 50 MG/5 ML VIAL ONE (12:41)
[2021-09-07] MEDS ORDERED: *HR* Propofol 200 MG/20 ML VIAL IVP ONE (12:41)
[2021-09-07] MEDS ORDERED: Lidocaine -MPF 2% 5 ML VIAL ONE (12:41)
[2021-09-07] MEDS ORDERED: Lidocaine HCL 4 ML Topical Solution (Laryng-O-Jet Kit Sterile Pak) TP ONE (12:41)
[2021-09-07] MEDS ORDERED: Ondansetron 4 MG/2 ML VIAL ONE (12:41)
[2021-09-07] MEDS ORDERED: CeFAZolin Syr 2,000MG/20 ML 2,000 MG/20 ML SYRINGE IVPB ONE (12:55)
[2021-09-07] MEDS ORDERED: Povidone-Iodine 45 ML, Sodium Chloride IRRigation 1,000 ML IR ONE (12:55)
[2021-09-07] MEDS ORDERED: Ringers Solution, Lactated 1,000 ML IVC SCH ×2 (13:00→16:45)
[2021-09-07] MEDS ORDERED: Famotidine 20 MG TABLET PO ONE (13:00)
[2021-09-07] MEDS ORDERED: Pregabalin 75 MG CAPSULE PO ONE (13:00)
[2021-09-07] MEDS ORDERED: *HR* FentaNYL (PF) 100 MCG/2 ML VIAL ONE (13:02)
[2021-09-07] MEDS ORDERED: *HR* Midazolam HCl 2 MG/2 ML VIAL ONE (13:02)
[2021-09-07] MEDS ORDERED: ROPIVACAINE/PF/NS 0.25% 1 EACH SYRINGE INTRAART ONE (13:04)
[2021-09-07] MEDS ORDERED: Ropivacaine/PF 0.5% 30 ML VIAL ONE (13:04)
[2021-09-07] MEDS ORDERED: Tranexamic Acid 1,000 MG/10 ML VIAL ONE (14:59)
[2021-09-07] MEDS ORDERED: Albumin Human 5% 25.0 GM/500 ML IV.SOLN ONE (15:50)
[2021-09-07] MEDS ORDERED: MOM Conc 10 ML UD.LIQ PO PRN (16:45)
[2021-09-07] MEDS ORDERED: Sennosides 8.6 MG TABLET PO PRN (16:45)
[2021-09-07] MEDS ORDERED: Sugammadex Sodium 200 MG/2 ML VIAL IV ONE (16:46)
[2021-09-07 18:02] LABS: Hemoglobin 6.7 g/dL (11.5-15.4)
[2021-09-07] MEDS ORDERED: 0.9 % Sodium Chloride 500 ML ONE (18:27)
[2021-09-08 00:49] LABS: Basophils % 0.2 %; Hematocrit 25.8 % (35.3-44.9); Hemoglobin 8.8 g/dL (11.5-15.4); Immature Granulocytes % 0.7 % (0-4); Lymphocytes # 0.6 K/mcL (0.6-4.6); Lymphocytes % 3.4 %; Mean Corpuscular HGB Conc 34.1 g/dL (31.6-35.5); Mean Corpuscular Hemoglobin 32.5 pg (28.0-33.3); Mean Corpuscular Volume 95.2 fL (83.0-100.0); Mean Platelet Volume 10.7 fL (9.4-12.4); Monocytes # 0.6 K/mcL (0.0-1.3); Monocytes % 3.5 %; Neutrophils # 15.3 K/mcL (1.6-8.9); Platelet Count 80 K/mcL (140-400); Red Blood Count 2.71 M/mcL (3.82-4.97); Red Cell Distribution Width 15.1 % (11.5-14.5); Segmented Neutrophils % 92.2 %; White Blood Count 16.6 K/mcL (4.3-11.1)
[2021-09-08] MEDS: Ketorolac 30 MG/ML VIAL IVP SCH ×5 (00:53→23:00)
[2021-09-08] MEDS: Acetaminophen 325 MG TABLET PO SCH ×5 (00:54→22:57)
[2021-09-08] MEDS: Gabapentin 300 MG CAPSULE PO SCH ×3 (01:04→22:59)
[2021-09-08 01:05] LABS: Calcium 8.3 mg/dL (8.6-10.3); Potassium 6.1 mEq/L (3.5-5.1)
[2021-09-08] MEDS: methocarbamoL 750 MG TABLET PO SCH ×3 (01:05→22:59)
[2021-09-08] MEDS: CeFAZolin 2 GM/120 ML BAG IVPB SCH ×2 (03:14→12:14)
[2021-09-08] MEDS ORDERED: Furosemide 40 MG TABLET PO SCH (09:00)
[2021-09-08] MEDS ORDERED: *HR* Metformin 500 MG TABLET PO SCH (09:00)
[2021-09-08] MEDS: *HR* OxyCODONE Immed Rel 5 MG TABLET PO PRN (09:41)
[2021-09-08] MEDS: FLUoxetine 20 MG CAPSULE PO SCH (09:42)
[2021-09-08] MEDS: Folic Acid 1 MG TABLET PO SCH (09:42)
[2021-09-08] MEDS: Ondansetron 4 MG/2 ML VIAL IVP PRN (13:53)
[2021-09-08 21:35] LABS: Basophils % 0.2 %; Hemoglobin 7.8 g/dL (11.5-15.4); Lymphocytes % 3.9 %; Nucleated Red Blood Cells 0.1 /100 WBC (0)
[2021-09-08 21:37] LABS: Basophils # 0.1 K/mcL (0.0-0.2); Hematocrit 23.2 % (35.3-44.9); Immature Granulocytes % 1.3 % (0-4); Immature Platelets 4.2 % (1.1-6.1); Mean Corpuscular HGB Conc 33.6 g/dL (31.6-35.5); Mean Corpuscular Hemoglobin 33.6 pg (28.0-33.3); Mean Platelet Volume 11.6 fL (9.4-12.4); Monocytes # 2.8 K/mcL (0.0-1.3); Monocytes % 10.9 %; Neutrophils # 21.1 K/mcL (1.6-8.9); Red Blood Count 2.32 M/mcL (3.82-4.97); Segmented Neutrophils % 83.7 %; White Blood Count 25.2 K/mcL (4.3-11.1)
[2021-09-08 21:38] LABS: Platelet Count 86 K/mcL (140-400)
[2021-09-08 21:55] LABS: Calcium 8.1 mg/dL (8.6-10.3); Magnesium 1.5 mg/dL (1.6-2.6); Potassium 6.1 mEq/L (3.5-5.1)
[2021-09-08 22:02] LABS: Hypochromasia Present (Not Present); Platelet Estimate Decreased (Normal); Polychromasia 1+ (Not Present)
[2021-09-09] MEDS: Acetaminophen 325 MG TABLET PO SCH (01:38)
[2021-09-09] MEDS ORDERED: Naloxone 0.4 MG/ML INJ IVP PRN (03:20)
[2021-09-09] MEDS ORDERED: Vancomycin 1,250 MG/262.5 ML IV.SOLN IVPB ONE (04:00)
[2021-09-09 04:18] LABS: Hemoglobin 7.7 g/dL (11.5-15.4)
[2021-09-09 04:20] LABS: Hematocrit 23.2 % (35.3-44.9); Immature Platelets 4.3 % (1.1-6.1); Mean Corpuscular HGB Conc 33.2 g/dL (31.6-35.5); Mean Corpuscular Hemoglobin 33.2 pg (28.0-33.3); Mean Platelet Volume 11.3 fL (9.4-12.4); Red Blood Count 2.32 M/mcL (3.82-4.97); Red Cell Distribution Width 15.8 % (11.5-14.5); White Blood Count 25.2 K/mcL (4.3-11.1)
[2021-09-09 04:27] LABS: INR 2.1; Prothrombin Time 23.8 Seconds (9.4-12.1)
[2021-09-09 04:30] LABS: Activated Partial Thrombo Time 19.8 Seconds (26.0-36.0)
[2021-09-09 04:41] LABS: Estimated Average Glucose 82 mg/dl; Hemoglobin A1C 4.5 %
[2021-09-09] MEDS ORDERED: 0.9 % Sodium Chloride 1,000 ML IVC ONE (04:45)
[2021-09-09 04:53] LABS: % Iron Saturation 83 % (15-50); Alanine Aminotransferase < 3 Units/L (7-52); Albumin 2.6 g/dL (3.5-5.7); Albumin/Globulin Ratio 1.1 (1.1-2.2); Alkaline Phosphatase 52 Units/L (34-104); Aspartate Amino Transferase 32 Units/L (13-39); BUN/Creatinine Ratio 10 (6-26); Bilirubin,Direct 0.7 mg/dL (0.0-0.2); Bilirubin,Indirect 1.1 mg/dL (0.0-1.0); Bilirubin,Total 1.8 mg/dL (0.3-1.0); Blood Urea Nitrogen 35 mg/dL (8-23); Calcium 8.3 mg/dL (8.6-10.3); Carbon Dioxide 17 mEq/L (23-29); Chloride 99 mEq/L (98-107); Globulin 2.3 g/dL (2.4-3.5); Glucose 138 mg/dL (70-105); Iron 159 mcg/dL (50-170); Magnesium 1.4 mg/dL (1.6-2.6); Osmolality,Calculated 280 (280-300); Potassium 6.2 mEq/L (3.5-5.1); Sodium 130 mEq/L (136-145); Total Protein 4.9 g/dL (6.4-8.9); Transferrin 137 mg/dL (203-362); Troponin I 0.03 ng/mL (< 0.04); eGFR For African Americans 17 (> 60); eGFR For Non-African Americans 14 (> 60)
[2021-09-09] MEDS ORDERED: *HR* Dextrose 50 % in Water (Syg) 50 ML SYRINGE IVP PRN ×2 (04:55→15:18)
[2021-09-09] MEDS ORDERED: D5% in Water 1,000 ML IVC PRN (04:55)
[2021-09-09] MEDS ORDERED: Dextrose Gel 15 GM/37.5 ML TUBE PO PRN ×2 (04:55)
[2021-09-09] MEDS ORDERED: SODIUM ZIRCONIUM CYCLOSILICATE 5 GM POWD.PACK PO ONE (05:04)
[2021-09-09] MEDS ORDERED: Magnesium Sulfate 1 GM/102 ML PIGGYBACK IVPB ONE (05:06)
[2021-09-09 05:07] LABS: Ferritin 635 ng/mL (10-120); Folate > 22.3 ng/mL (3.0-16.0); Vitamin B12 1266 pg/mL (250-1100)
[2021-09-09] MEDS ORDERED: Calcium Gluconate 1gm/50mL 1 GM/50 ML BAG IVPB ONE (05:08)
[2021-09-09] MEDS: Piperacillin/Tazobactam 3.375 GM in 0.9 % Sodium Chloride Mini Bag 100 ML IVPB SCH ×2 (05:21→16:20)
[2021-09-09] MEDS: 0.9 % Sodium Chloride 1,000 ML IVC SCH ×2 (05:23→07:01)
[2021-09-09] MEDS: Insulin LISPRO 300 UNITS/3 ML VIAL SUBQ SCH ×2 (07:08→11:56)
[2021-09-09] MEDS ORDERED: *HR* Dextrose 50 % in Water (Syg) 50 ML SYRINGE IVP ONE ×2 (08:26→14:41)
[2021-09-09] MEDS ORDERED: 0.9 % Sodium Chloride 1,000 ML IV ONE (08:29)
[2021-09-09] MEDS ORDERED: Sodium Bicarbonate 75 MEQ in 0.45 % Sodium Chloride 1,000 ML IVC SCH (08:30)
[2021-09-09] MEDS: Folic Acid 1 MG TABLET PO SCH (08:52)
[2021-09-09] MEDS: FLUoxetine 20 MG CAPSULE PO SCH (08:53)
[2021-09-09] MEDS ORDERED: Insulin Human Regular 10 UNIT in 0.9 % Sodium Chloride 10 ML IV ONE ×2 (09:00→14:41)
[2021-09-09] MEDS: SODIUM ZIRCONIUM CYCLOSILICATE 5 GM POWD.PACK PO SCH ×2 (09:16→13:47)
[2021-09-09] MEDS: Calcium Gluconate 1gm/50mL 1 GM/50 ML BAG IVPB SCH ×2 (09:17→09:46)
[2021-09-09 12:23] LABS: Bacteria,Urine Few per hpf (None-Few); Bilirubin,Urine Negative (Negative); Blood,Urine Large (Negative); Clarity,Urine Turbid (Clear); Color,Urine Yellow (Yellow); Glucose,Urine (UA) Normal (Normal); Hyaline Casts,Urine Moderate per lpf (None Seen); Ketones,Urine 10 mg/dL (Negative); Leukocyte Esterase,Urine Large (Negative); Mucus,Urine Few per lpf (None-Few); Nitrite,Urine Negative (Negative); PH,Urine 5.5 pH Units (5.0-8.0); Protein,Urine 70 mg/dL (Neg-Trace); RBC,Urine 50-100 per hpf (0-3); Specific Gravity,Urine 1.028 (1.010-1.025); Squamous Epithelial Cell,Urine Few per hpf (None-Few); Urobilinogen,Urine Normal (Normal); WBC,Urine 50-100 per hpf (0-3)
[2021-09-09 14:06] LABS: Potassium 6.1 mEq/L (3.5-5.1)
[2021-09-09 14:48] LABS: Protein/Creatinine Ratio,Urine 0.43 mg/mg (0.00-0.20); Sodium, Urine 11.3 mEq/L
[2021-09-09] MEDS: Sodium Bicarbonate 150 MEQ in D5% in Water 1,000 ML IVC SCH (16:26)
[2021-09-09] MEDS: *HR* OxyCODONE Immed Rel 5 MG TABLET PO PRN (16:56)
[2021-09-09 19:15] LABS: Calcium 7.7 mg/dL (8.6-10.3); Potassium 5.2 mEq/L (3.5-5.1)
[2021-09-09 23:24] LABS: Potassium 5.3 mEq/L (3.5-5.1)
[2021-09-10] MEDS: SODIUM ZIRCONIUM CYCLOSILICATE 5 GM POWD.PACK PO SCH (00:03)
[2021-09-10] MEDS: Lactulose Oral Soln 20 GM/30 ML UDC PO SCH ×4 (00:03→20:26)
[2021-09-10] MEDS: Sodium Bicarbonate 150 MEQ in D5% in Water 1,000 ML IVC SCH (02:46)
[2021-09-10] MEDS: Piperacillin/Tazobactam 3.375 GM in 0.9 % Sodium Chloride Mini Bag 100 ML IVPB SCH ×2 (05:43→16:17)
[2021-09-10 06:25] LABS: Basophils % 0.1 %; Eosinophils % 0.7 %; Lymphocytes % 5.8 %; Mean Corpuscular Volume 97.6 fL (83.0-100.0); Nucleated Red Blood Cells 0.4 /100 WBC (0)
[2021-09-10 06:27] LABS: Eosinophils # 0.1 K/mcL (0.0-0.6); Hematocrit 16.2 % (35.3-44.9); Immature Granulocytes % 3.3 % (0-4); Immature Platelets 4.1 % (1.1-6.1); Lymphocytes # 0.6 K/mcL (0.6-4.6); Mean Corpuscular HGB Conc 34.6 g/dL (31.6-35.5); Mean Corpuscular Hemoglobin 33.7 pg (28.0-33.3); Mean Platelet Volume 11.1 fL (9.4-12.4); Monocytes # 0.5 K/mcL (0.0-1.3); Monocytes % 5.5 %; Neutrophils # 8.2 K/mcL (1.6-8.9); Red Blood Count 1.66 M/mcL (3.82-4.97); Red Cell Distribution Width 15.5 % (11.5-14.5); Segmented Neutrophils % 84.6 %; White Blood Count 9.7 K/mcL (4.3-11.1)
[2021-09-10 06:30] LABS: Platelet Count 62 K/mcL (140-400)
[2021-09-10 06:31] LABS: Hemoglobin 5.6 g/dL (11.5-15.4)
[2021-09-10 06:42] LABS: Calcium 7.6 mg/dL (8.6-10.3); Magnesium 1.6 mg/dL (1.6-2.6); Potassium 4.9 mEq/L (3.5-5.1)
[2021-09-10 06:45] LABS: Phosphorous 3.9 mg/dL (2.7-4.5); Uric Acid 9.4 mg/dL (2.3-7.6)
[2021-09-10 06:58] LABS: Thyroid Stimulating Hormone 0.276 mcIU/mL (0.340-5.600)
[2021-09-10] MEDS ORDERED: Dextrose Gel 15 GM/37.5 ML TUBE PO PRN ×2 (07:45)
[2021-09-10] MEDS ORDERED: *HR* Dextrose 50 % in Water (Syg) 50 ML SYRINGE IVP PRN (07:45)
[2021-09-10] MEDS ORDERED: D5% in Water 1,000 ML IVC PRN (07:45)
[2021-09-10 09:07] LABS: Vitamin D 25 Hydroxy 14 ng/mL (30-80)
[2021-09-10] MEDS: Insulin LISPRO 300 UNITS/3 ML VIAL SUBQ SCH ×4 (09:09→20:29)
[2021-09-10] MEDS: Folic Acid 1 MG TABLET PO SCH (09:09)
[2021-09-10] MEDS: Gabapentin 300 MG CAPSULE PO SCH (09:09)
[2021-09-10] MEDS: FLUoxetine 20 MG CAPSULE PO SCH (09:09)
[2021-09-10 09:16] LABS: Hepatitis B Surface Antigen Nonreactive (Nonreactive)
[2021-09-10 09:44] LABS: Hepatitis C Virus Antibody Nonreactive (Nonreactive)
[2021-09-10 09:45] LABS: Hepatitis B Core IgM Nonreactive (Nonreactive)
[2021-09-10 09:46] LABS: Hepatitis A Antibody IgM Nonreactive (Nonreactive)
[2021-09-10] MEDS: 0.9 % Sodium Chloride 1,000 ML IVC SCH (13:28)
[2021-09-10 13:42] LABS: Hematocrit 18.7 % (35.3-44.9); Hemoglobin 6.4 g/dL (11.5-15.4)
[2021-09-10 13:48] LABS: Calcium 7.7 mg/dL (8.6-10.3); Potassium 4.4 mEq/L (3.5-5.1)
[2021-09-10] MEDS ORDERED: 0.9 % Sodium Chloride 250 ML IVC SCH (14:15)
[2021-09-10 15:36] LABS: Basophils % 0.1 %; Eosinophils % 1.7 %; Mean Corpuscular HGB Conc 34.2 g/dL (31.6-35.5); Mean Corpuscular Hemoglobin 32.8 pg (28.0-33.3); Nucleated Red Blood Cells 0.9 /100 WBC (0); Red Blood Count 1.98 M/mcL (3.82-4.97)
[2021-09-10 15:38] LABS: Eosinophils # 0.2 K/mcL (0.0-0.6); Immature Platelets 5.4 % (1.1-6.1); Lymphocytes # 0.7 K/mcL (0.6-4.6); Lymphocytes % 8.1 %; Mean Platelet Volume 11.6 fL (9.4-12.4); Monocytes # 1.5 K/mcL (0.0-1.3); Monocytes % 16.5 %; Neutrophils # 6.1 K/mcL (1.6-8.9); Platelet Count 52 K/mcL (140-400); Red Cell Distribution Width 15.8 % (11.5-14.5); Segmented Neutrophils % 69.6 %; White Blood Count 8.8 K/mcL (4.3-11.1)
[2021-09-10] MEDS: Pantoprazole 40 MG VIAL IVP SCH (16:16)
[2021-09-10 16:46] LABS: Basophils % 0.2 %; Hemoglobin 6.2 g/dL (11.5-15.4); Red Cell Distribution Width 15.9 % (11.5-14.5)
[2021-09-10 16:47] LABS: Eosinophils # 0.2 K/mcL (0.0-0.6); Eosinophils % 2.4 %; Hematocrit 18.3 % (35.3-44.9); Immature Platelets 4.7 % (1.1-6.1); Lymphocytes # 0.7 K/mcL (0.6-4.6); Lymphocytes % 8.3 %; Mean Corpuscular HGB Conc 33.9 g/dL (31.6-35.5); Mean Corpuscular Hemoglobin 32.5 pg (28.0-33.3); Mean Corpuscular Volume 95.8 fL (83.0-100.0); Mean Platelet Volume 11.1 fL (9.4-12.4); Monocytes # 1.5 K/mcL (0.0-1.3); Monocytes % 17.4 %; Neutrophils # 5.8 K/mcL (1.6-8.9); Nucleated Red Blood Cells 1.3 /100 WBC (0); Red Blood Count 1.91 M/mcL (3.82-4.97); Segmented Neutrophils % 66.7 %; White Blood Count 8.7 K/mcL (4.3-11.1)
[2021-09-10 16:48] LABS: Platelet Count 57 K/mcL (140-400)
[2021-09-10 17:02] LABS: INR 2.7; Prothrombin Time 29.5 Seconds (9.4-12.1)
[2021-09-11 03:17] LABS: Basophils # 0.1 K/mcL (0.0-0.2); Basophils % 0.7 %; Eosinophils # 0.6 K/mcL (0.0-0.6); Eosinophils % 5.1 %; Hematocrit 23.5 % (35.3-44.9); Immature Platelets 5.5 % (1.1-6.1); Lymphocytes # 0.9 K/mcL (0.6-4.6); Lymphocytes % 7.4 %; Mean Corpuscular Hemoglobin 32.8 pg (28.0-33.3); Mean Corpuscular Volume 96.3 fL (83.0-100.0); Mean Platelet Volume 11.5 fL (9.4-12.4); Monocytes % 16.3 %; Neutrophils # 7.7 K/mcL (1.6-8.9); Nucleated Red Blood Cells 2.3 /100 WBC (0); Red Blood Count 2.44 M/mcL (3.82-4.97); Red Cell Distribution Width 16.1 % (11.5-14.5); Segmented Neutrophils % 63.5 %; White Blood Count 12.1 K/mcL (4.3-11.1)
[2021-09-11 03:22] LABS: Platelet Count 47 K/mcL (140-400)
[2021-09-11 03:34] LABS: Platelet Estimate Decreased (Normal)
[2021-09-11 03:58] LABS: Calcium 7.9 mg/dL (8.6-10.3); Magnesium 1.9 mg/dL (1.6-2.6); Potassium 4.5 mEq/L (3.5-5.1); Triiodothyronine (T3) Free 2.65 pg/mL (2.50-3.90)
[2021-09-11] MEDS: Piperacillin/Tazobactam 3.375 GM in 0.9 % Sodium Chloride Mini Bag 100 ML IVPB SCH ×2 (04:19→17:14)
[2021-09-11] MEDS: Pantoprazole 40 MG VIAL IVP SCH ×2 (04:20→17:14)
[2021-09-11] MEDS: 0.9 % Sodium Chloride 1,000 ML IVC SCH (04:24)
[2021-09-11 11:30] LABS: Hematocrit 20.5 % (35.3-44.9)
[2021-09-11] MEDS ORDERED: Lactulose Oral Soln 20 GM/30 ML UDC PO ONE (12:26)
[2021-09-11] MEDS: FLUoxetine 20 MG CAPSULE PO SCH (12:30)
[2021-09-11] MEDS: Insulin LISPRO 300 UNITS/3 ML VIAL SUBQ SCH ×4 (12:30→21:20)
[2021-09-11] MEDS: Iron Sucrose Complex 200 MG in 0.9 % Sodium Chloride 100 ML IVPB SCH (12:30)
[2021-09-11] MEDS: Cholecalciferol (D-3) 1,000 UNIT (25MCG) TABLET PO SCH (12:30)
[2021-09-11] MEDS: Folic Acid 1 MG TABLET PO SCH (12:30)
[2021-09-11] MEDS: Lactulose Oral Soln 20 GM/30 ML UDC PO SCH ×2 (13:55→21:20)
[2021-09-11] MEDS ORDERED: 0.9 % Sodium Chloride 250 ML IVC SCH (14:15)
[2021-09-11 14:20] LABS: Adenovirus F 40/41 PCR Not detected (Not detect); Astrovirus PCR Not detected (Not detect); C.difficile Toxin A/B Gene PCR Not detected (Not detect); Campylobacter by PCR Not detected (Not detect); Cryptosporidium by PCR Not detected (Not detect); Cyclospora cayetanensis PCR Not detected (Not detect); E. coli O157 by PCR Not detected (Not detect); Entamoeba histolytica PCR Not detected (Not detect); Enteroaggregative E.coli(EAEC) Not detected (Not detect); Enteropathogenic E.coli(EPEC) Not detected (Not detect); Enterotoxigenic E.coli (ETEC) Not detected (Not detect); Giardia lamblia PCR Not detected (Not detect); Norovirus GI/GII PCR Not detected (Not detect); Plesiomonas shigelloides PCR Not detected (Not detect); Rotavirus A PCR Not detected (Not detect); Salmonella PCR Not detected (Not detect); Sapovirus PCR Not detected (Not detect); Shig/EnteroinvasiveE coli EIEC Not detected (Not detect); Shigalike tox-prod E coli STEC Not detected (Not detect); Vibrio PCR Not detected (Not detect); Vibrio cholerae PCR Not detected (Not detect); Yersinia enterocolitica PCR Not detected (Not detect)
[2021-09-11] MEDS: Ondansetron 4 MG/2 ML VIAL IVP PRN (17:14)
[2021-09-11] MEDS: Cyanocobalamin (B-12) 1,000 MCG/ML VIAL SQ SCH (18:54)
[2021-09-11 20:16] LABS: Hematocrit 16.7 % (35.3-44.9); Mean Corpuscular HGB Conc 33.5 g/dL (31.6-35.5); Mean Corpuscular Hemoglobin 32.7 pg (28.0-33.3); Mean Corpuscular Volume 97.7 fL (83.0-100.0); Nucleated Red Blood Cells 3.9 /100 WBC (0); Platelet Count 126 K/mcL (140-400); Red Blood Count 1.71 M/mcL (3.82-4.97); Red Cell Distribution Width 16.8 % (11.5-14.5); White Blood Count 23.1 K/mcL (4.3-11.1)
[2021-09-11 20:54] LABS: Hemoglobin 5.6 g/dL (11.5-15.4)
[2021-09-11 20:57] LABS: Eosinophils # 0.9 K/mcL (0.0-0.6); Lymphocytes # 7.4 K/mcL (0.6-4.6); Neutrophils # 12.9 K/mcL (1.6-8.9)
[2021-09-12 04:57] LABS: Hemoglobin 6.3 g/dL (11.5-15.4); Mean Platelet Volume 11.3 fL (9.4-12.4)
[2021-09-12 04:59] LABS: Hematocrit 18.7 % (35.3-44.9); Mean Corpuscular HGB Conc 33.7 g/dL (31.6-35.5); Mean Corpuscular Hemoglobin 31.7 pg (28.0-33.3); Nucleated Red Blood Cells 4.5 /100 WBC (0); Platelet Count 112 K/mcL (140-400); Red Blood Count 1.99 M/mcL (3.82-4.97); Red Cell Distribution Width 15.7 % (11.5-14.5); White Blood Count 26.7 K/mcL (4.3-11.1)
[2021-09-12 05:12] LABS: Alanine Aminotransferase < 3 Units/L (7-52); Albumin 1.8 g/dL (3.5-5.7); Albumin/Globulin Ratio 1.4 (1.1-2.2); Alkaline Phosphatase 36 Units/L (34-104); Aspartate Amino Transferase 27 Units/L (13-39); BUN/Creatinine Ratio 26 (6-26); Bilirubin,Direct 1.1 mg/dL (0.0-0.2); Bilirubin,Indirect 1.4 mg/dL (0.0-1.0); Bilirubin,Total 2.5 mg/dL (0.3-1.0); Blood Urea Nitrogen 88 mg/dL (8-23); Calcium 7.3 mg/dL (8.6-10.3); Carbon Dioxide 26 mEq/L (23-29); Chloride 97 mEq/L (98-107); Globulin 1.3 g/dL (2.4-3.5); Glucose 244 mg/dL (70-105); Magnesium 2.1 mg/dL (1.6-2.6); Osmolality,Calculated 301 (280-300); Potassium 4.4 mEq/L (3.5-5.1); Sodium 128 mEq/L (136-145); Total Protein 3.1 g/dL (6.4-8.9); eGFR For African Americans 17 (> 60); eGFR For Non-African Americans 14 (> 60)
[2021-09-12 05:41] LABS: Eosinophils # 1.1 K/mcL (0.0-0.6); Large Platelets Present (Not Present); Lymphocytes # 2.1 K/mcL (0.6-4.6); Monocytes # 3.2 K/mcL (0.0-1.3); Neutrophils # 20.3 K/mcL (1.6-8.9); Platelet Estimate Slight Decrease (Normal)
[2021-09-12 05:42] LABS: Polychromasia 1+ (Not Present)
[2021-09-12] MEDS: Piperacillin/Tazobactam 3.375 GM in 0.9 % Sodium Chloride Mini Bag 100 ML IVPB SCH ×2 (06:13→16:54)
[2021-09-12] MEDS: Pantoprazole 40 MG VIAL IVP SCH ×2 (06:13→17:46)
[2021-09-12] MEDS: Ondansetron 4 MG/2 ML VIAL IVP PRN ×2 (06:19→16:02)
[2021-09-12] MEDS ORDERED: Cyanocobalamin (B-12) 1,000 MCG/ML VIAL SQ SCH (09:00)
[2021-09-12] MEDS: Iron Sucrose Complex 200 MG in 0.9 % Sodium Chloride 100 ML IVPB SCH (09:13)
[2021-09-12] MEDS: *HR* OxyCODONE Immed Rel 5 MG TABLET PO PRN ×2 (09:15→16:05)
[2021-09-12] MEDS: Cyanocobalamin (B-12) 1,000 MCG/ML VIAL SQ SCH (09:15)
[2021-09-12] MEDS: Lactulose Oral Soln 20 GM/30 ML UDC PO SCH ×3 (09:15→19:49)
[2021-09-12] MEDS: Cholecalciferol (D-3) 1,000 UNIT (25MCG) TABLET PO SCH (09:15)
[2021-09-12] MEDS: FLUoxetine 20 MG CAPSULE PO SCH (09:15)
[2021-09-12] MEDS: Insulin LISPRO 300 UNITS/3 ML VIAL SUBQ SCH ×4 (09:15→19:48)
[2021-09-12] MEDS: Folic Acid 1 MG TABLET PO SCH (09:15)
[2021-09-13] MEDS: *HR* OxyCODONE Immed Rel 5 MG TABLET PO PRN (00:11)
[2021-09-13] MEDS: Piperacillin/Tazobactam 3.375 GM in 0.9 % Sodium Chloride Mini Bag 100 ML IVPB SCH (04:08)
[2021-09-13 04:37] LABS: Mean Corpuscular HGB Conc 32.4 g/dL (31.6-35.5); Mean Corpuscular Hemoglobin 32.9 pg (28.0-33.3); Mean Corpuscular Volume 101.4 fL (83.0-100.0); Mean Platelet Volume 11.6 fL (9.4-12.4); Platelet Count 111 K/mcL (140-400); Red Cell Distribution Width 21.1 % (11.5-14.5)
[2021-09-13 04:53] LABS: Hematocrit 14.2 % (35.3-44.9); Hemoglobin 4.6 g/dL (11.5-15.4); White Blood Count 50.2 K/mcL (4.3-11.1)
[2021-09-13] MEDS: Pantoprazole 40 MG VIAL IVP SCH (05:31)
[2021-09-13 07:47] LABS: Alpha 2 Globulin (PEP) 0.28 g/dL (0.48-1.05); Beta Globulin (PEP) 0.35 g/dL (0.48-1.10)
[2021-09-13 08:30] VITALS: TEMP 98.2
[2021-09-13] MEDS: Insulin LISPRO 300 UNITS/3 ML VIAL SUBQ SCH (08:30)
[2021-09-13] MEDS: Folic Acid 1 MG TABLET PO SCH (08:31)
[2021-09-13] MEDS: FLUoxetine 20 MG CAPSULE PO SCH (08:31)
[2021-09-13] MEDS: Cholecalciferol (D-3) 1,000 UNIT (25MCG) TABLET PO SCH (08:31)
[2021-09-13] MEDS: Lactulose Oral Soln 20 GM/30 ML UDC PO SCH (08:31)
[2021-09-13 10:13] LABS: IFE Reflexed NOT DONE
[2021-09-13 10:19] VITALS: BP 129/51; PULSE 103; O2SAT 96
== END 2021-09-13 10:42 | disposition short-term general hospital (02) | DRG 322 ==
LOC: SDCAOSI 11:53 → 4WAOSI 22:23 → 3NENU 09-09 04:46 → 2NNU 09-09 19:41
PROVIDERS: ADMIT Orthopaedic Surgery; ATTEND Orthopaedic Surgery